=== PATIENT | male | born 1985 | race African-American/Black ===

== ENCOUNTER 2016-09-09 12:45 | Inpatient (IN) | payer OTHER ==
[2016-09-09 17:01] VITALS: BMI 24.4
--- NOTE | 2016-09-09 20:12 | HP ---
CIWA Score - CIWA Score Nausea/Vomitin-Mild Nausea/No Vomiting Muscle Tremors: 4-Moderate,w/Arms Extend Anxiety: 4-Mod. Anxious/Guarded Agitation: 4-Moderately Restless Paroxysmal Sweats: 1-Minimal Palms Moist Orientation: 0-Oriented Tacttile Disturbances: 0-None Auditory Disturbances: 0-None Visual Disturbances: 0-None Headache: 0-None Present CIWA-Ar Total Score: 14 Admission ROS S - HPI Chief Complaint: withdrawal sx Allergies/Adverse Reactions: Allergies Allergy/AdvReac Type Severity Reaction Status Date / Time Fish Containing Products AdvReac Verified 09/09/16 20:16 History of Present Illness: 31 years old male with long history of xanax dependence has asthma and depression is admitted to detox Exam Limitations: No Limitations - Ebola screening Have you traveled outside of the country in the last 21 days: No Have you had contact with anyone from an Ebola affected area: No Have you been sick,other than usual withdrawal symptoms: No Do you have a fever: No - Review of Systems Constitutional: Chills, Changes in sleep, Weight Stable EENT: reports: No Symptoms Reported Respiratory: reports: SOB with Exertion Cardiac: reports: No Symptoms Reported GI: reports: Nausea, Poor Fluid Intake, Abdominal cramping : reports: No Symptoms Reported Musculoskeletal: reports: No Symptoms Reported Integumentary: reports: No Symptoms Reported Neuro: reports: Tremors Endocrine: reports: No Symptoms Reported Hematology: reports: No Symptoms Reported Psychiatric: reports: Judgement Intact, Orientated x3, Depressed Other Systems: Reviewed and Negative Patient History - Patient Medical History Hx Anemia: No Hx Asthma: Yes Hx Chronic Obstructive Pulmonary Disease (COPD): No Hx Cancer: No Hx Cardiac Disorders: No Hx Congestive Heart Failure: No Hx Hypertension: No Hx Hypercholesterolemia: No Hx Pacemaker: No HX Cerebrovascular Accident: No Hx Seizures: No Hx Dementia: No Hx Diabetes: No Hx Gastrointestinal Disorders: No Hx Liver Disease: No Hx Genitourinary Disorders: No Hx Sexually Transmitted Disorders: No Hx Renal Disease (ESRD): No Hx Thyroid Disease: No Hx Human Immunodeficiency Virus (HIV): No Hx Hepatitis C: No Hx Depression: Yes Hx Suicide Attempt: Yes (2016 over dose) Hx Bipolar Disorder: No Hx Schizophrenia: No - Patient Surgical History Past Surgical History: No - PPD History Previous Implant?: Yes Documented Results: Negative w/o proof Implanted On Prior [facility] Admission?: No PPD to be Administered?: Yes - Smoking Cessation Smoking history: Never smoked Have you smoked in the past 12 months: No Hx Chewing Tobacco Use: No Initiated information on smoking cessation: No - Substance & Tx. History Hx Alcohol Use: No Hx Substance Use: Yes Substance Use Type: Tranquilizers Hx Substance Use Treatment: Yes - Substances Abused Alprazolam (Xanax) Route: Oral Frequency: Daily Amount used: 10 mg Age of first use: 30 Date of Last Use: 09/08/16 Family Disease History - Family Disease History Family Disease History: Diabetes: Father, Mother, Heart Disease: Father, Respiratory: Brother Admission Physical Exam [facility] - Vital Signs Vital Signs: Vital Signs - 24 hr 09/09/16 16:57 Temperature 97 F L Pulse Rate 62 Respiratory 20 Rate Blood Pressure 131/68 - Physical General Appearance: Yes: Appropriately Dressed, Mild Distress, Thin, Tremorous, Irritable, Sweating, Anxious HEENTM: Yes: Hearing grossly Normal, Normal ENT Inspection, Normocephalic, Normal Voice Respiratory: Yes: Chest Non-Tender, Lungs Clear, Normal Breath Sounds, No Respiratory Distress, No Accessory Muscle Use Neck: Yes: Supple, Trachea in good position Breast: Yes: Breasts Symetrical Cardiology: Yes: Regular Rhythm, S1, S2, Bradycardia Abdominal: Yes: Non Tender, Soft Genitourinary: Yes: Within Normal Limits Back: Yes: Normal Inspection Musculoskeletal: Yes: full range of Motion, Gait Steady Extremities: Yes: Normal Range of Motion, Non-Tender, Tremors Neurological: Yes: Fully Oriented, Alert, Motor Strength 5/5, Normal Response, Depressed Affect Integumentary: Yes: Warm Lymphatic: Yes: Within Normal Limits - Diagnostic (1) Sedative, hypnotic or anxiolytic dependence with withdrawal, uncomplicated Current Visit: Yes Status: Acute (2) Asthma Current Visit: Yes Status: Chronic Qualifiers: Asthma severity: mild intermittent Asthma complication type: with status asthmaticus Qualified Code(s): J45.22 - Mild intermittent asthma with status asthmaticus (3) Depression (emotion) Current Visit: Yes Status: Suspected Qualifiers: Depression Type: dysthymia Qualified Code(s): F34.1 - Dysthymic disorder Cleared for Admission S - Detox or Rehab [facility] Level of Care: Medically Managed Detox Regimen/Protocol: Valium BHS Breath Alcohol Content Breath Alcohol Content: 0 Urine Drug Screen - Results Drug Screen Negative: No Urine Drug Screen Results: BZO-Benzodiazepines, TCA-Tricyclic Antidepress
[2016-09-09] MEDS ORDERED: MENTHOL/PHENOL 1 EACH UD MM PRN (20:22)
[2016-09-09] MEDS ORDERED: guaiFENesin/D-METHORPHAN HB 10 ML UNIT-DOSE CUPS PO PRN (20:22)
[2016-09-09] MEDS ORDERED: diazePAM 5 MG TABLET PO ONE (20:22)
[2016-09-09] MEDS ORDERED: hydrOXYzine PAMOATE 50 MG CAPSULE (FP) PO PRN (20:22)
[2016-09-09] MEDS ORDERED: MAGNESIUM HYDROX 2400MG/30ML ORAL SUSPENSION 30 ML CUP PO PRN (20:22)
[2016-09-09] MEDS ORDERED: MAG HYDROX/AL HYDROX/SIMETH 30 ML UNIT-DOSE CUP PO PRN (20:22)
[2016-09-09] MEDS ORDERED: LOPERAMIDE HCL 2 MG CAPSULE PO PRN (20:22)
[2016-09-09] MEDS ORDERED: IBUPROFEN 400 MG TABLET (FP) PO PRN (20:22)
[2016-09-09] MEDS ORDERED: MAGNESIUM CITRATE 300 ML BOTTLE PO PRN (20:22)
[2016-09-09] MEDS ORDERED: P-EPHED 60MG/TRIPROLIDI 2.5MG TABLET PO PRN (20:22)
[2016-09-09] MEDS: THIAMINE HCL 100 MG TABLET (FP) PO SCH (23:25)
[2016-09-09] MEDS: diphenhydrAMINE HCL 50 MG CAPSULE PO PRN (23:27)
[2016-09-09] MEDS: diazePAM 5 MG TABLET PO SCH (23:33)
[2016-09-10 00:20] LABS: URINE APPEARANCE CLEAR; URINE BILIRUBIN NEGATIVE (NEGATIVE); URINE BLOOD NEGATIVE (NEGATIVE); URINE COLOR LTYELLOW; URINE GLUCOSE (UA) NEGATIVE (NEGATIVE); URINE KETONE NEGATIVE (NEGATIVE); URINE LEUK ESTERASE NEGATIVE (NEGATIVE); URINE NITRITE NEGATIVE (NEGATIVE); URINE PROTEIN NEGATIVE (NEGATIVE); URINE UROBILINOGEN NEGATIVE E.U./dl (0.2-1.0)
[2016-09-10] MEDS: diazePAM 5 MG TABLET PO SCH ×3 (06:06→22:23)
[2016-09-10] MEDS: ALBUTEROL SO4 6.7 GM HFA INHALER IH PRN (06:07)
[2016-09-10] MEDS: diazePAM 5 MG TABLET PO PRN (09:21)
[2016-09-10 09:52] LABS: MCHC 32.7 g/dl (32.0-35.9); MEAN CELL VOLUME 94.8 fl (80-96); MEAN PLT VOLUME 10.5 fl (7.5-11.1); PLATELET COUNT 258 K/MM3 (134-434); RDW 14.1 % (11.9-15.9); WHITE BLOOD COUNT 5.9 K/mm3 (4.0-10.0)
[2016-09-10] MEDS: PRENATAL VITAMINS W/ FOLIC ACID TABLET (FP) PO SCH (10:27)
[2016-09-10 10:37] LABS: ALK PHOS 52 U/L (45-117); ANION GAP 7 (8-16); BILIRUBIN,TOTAL 0.5 mg/dL (0.2-1.0); CALCIUM 9.7 mg/dL (8.5-10.1); CO2 30 mmol/L (21-32); CREATININE 1.1 mg/dL (0.7-1.3); GLUCOSE,RANDOM 86 mg/dL (74-106); SGOT/AST 16 U/L (15-37); SGPT/ALT 23 U/L (12-78); TOT PROT 7.5 g/dl (6.4-8.2)
--- NOTE | 2016-09-10 11:41 | EKG ---
Test Reason : Blood Pressure : / mmHG Vent. Rate : 058 BPM Atrial Rate : 058 BPM P-R Int : 174 ms QRS Dur : 092 ms QT Int : 396 ms P-R-T Axes : 056 040 048 degrees QTc Int : 388 ms SINUS BRADYCARDIA WITH SINUS ARRHYTHMIA OTHERWISE NORMAL ECG NO PREVIOUS ECGS AVAILABLE Confirmed by MARCIAL ENGLAND, JOANNA ([id number]) on 09/10/2016 11:41:08 AM Referred By: Confirmed By:JOANNA CEJA MD
--- NOTE | 2016-09-10 12:03 | PN ---
S CIWA - CIWA Score Nausea/Vomitin Muscle Tremors: 4-Moderate,w/Arms Extend Anxiety: 3 Agitation: 2 Paroxysmal Sweats: 3 Orientation: 0-Oriented Tacttile Disturbances: 0-None Auditory Disturbances: 2-Mild Harshness/Frighten Visual Disturbances: 2-Mild Sensitivity Headache: 0-None Present CIWA-Ar Total Score: 18 S Progress Note (SOAP) Subjective: Tremors, Body Aches, Sweating. Objective: PT. A & O X 3, OBSERVED AMBULATING ON UNIT. NO ACUTE DISTRESS. PT. DENIES CHEST PAIN. 09/10/16 12:02 Vital Signs Temperature 96.4 F L 09/10/16 10:08 Pulse Rate 70 09/10/16 10:08 Respiratory Rate 18 09/10/16 10:08 Blood Pressure 130/95 09/10/16 10:08 O2 Sat by Pulse Oximetry (%) Laboratory Tests 09/09/16 09/10/16 09/10/16 23:14 06:00 06:00 WBC 5.9 RBC 4.38 Hgb 13.6 Hct 41.5 MCV 94.8 MCHC 32.7 RDW 14.1 Plt Count 258 MPV 10.5 Sodium 142 Potassium 4.5 Chloride 105 Carbon Dioxide 30 Anion Gap 7 L BUN 14 Creatinine 1.1 Creat Clearance w eGFR > 60 Random Glucose 86 Calcium 9.7 Total Bilirubin 0.5 AST 16 ALT 23 Alkaline Phosphatase 52 Total Protein 7.5 Albumin 4.0 Urine Color Ltyellow Urine Appearance Clear Urine pH 7.0 Urine Protein Negative Urine Glucose (UA) Negative Urine Ketones Negative Urine Blood Negative Urine Nitrite Negative Urine Bilirubin Negative Urine Urobilinogen Negative Ur Leukocyte Esterase Negative LABS NOTED. Assessment: 09/10/16 12:03 WITHDRAWAL SYMPTOMS. Plan: CONTINUE DETOX.
--- NOTE | 2016-09-10 16:00 | CONSULT ---
[facility] Psychiatric Consult - Data Date of interview: 09/10/16 Admission source: [facility] Identifying data: First admission to [facility] for this 31 y/o AA male seeking detox treatment for xanax dependence.Patient is single without children, domiciled (lives with his mother),unemployed and supported on Public Assistance. Substance Abuse History: - Smoking Cessation. Smoking history: Never smoked. Have you smoked in the past 12 months: No. Hx Chewing Tobacco Use: No. Initiated information on smoking cessation: No. - Substance & Tx. History. Hx Alcohol Use: No. Hx Substance Use: Yes. Substance Use Type: Tranquilizers. Hx Substance Use Treatment: Yes. - Substances Abused. Alprazolam (Xanax). Route: Oral. Frequency: Daily. Amount used: 10 mg. Age of first use: 30. Date of Last Use: 09/08/16. Confirmed by patient. Medical History: Patient endorses good general health. Psychiatric History: Patient denies history of psychiatric hospitalizations.Brief O[facility] care at [facility] six months ago.Mr Narayanan reports that he is not on prescribed psychotropic medications (buys xanax from street dealers).Denies history of suicide attempts. Physical/Sexual Abuse/Trauma History: Patient denies history of abuse. Additional Comment: Urine Drug Screen Results: BZO-Benzodiazepines, TCA- Tricyclic Antidepressant.Noted. Mental Status Exam - Mental Status Exam Alert and Oriented to: Time, Place, Person Cognitive Function: Good Patient Appearance: Well Groomed Mood: Nervous, Withdrawn Affect: Mood Congruent Patient Behavior: Appropriate, Cooperative Speech Pattern: Clear Voice Loudness: Normal Thought Process: Goal Oriented Thought Disorder: Not Present Hallucinations: Denies Suicidal Ideation: Denies Homicidal Ideation: Denies Insight/Judgement: Poor Sleep: Poorly, Difficulty falling asleep (wants seroquel) Appetite: Good Muscle strength/Tone: Normal Gait/Station: Normal Psychiatric Findings - Problem List ([place] 1, 2,3) (1) Sedative, hypnotic or anxiolytic dependence with withdrawal, uncomplicated Current Visit: Yes Status: Acute (2) Substance induced mood disorder Current Visit: Yes Status: Acute (3) Insomnia Current Visit: Yes Status: Acute - Initial Treatment Plan Initial Treatment Plan: Psychoeducation.Detoxification.Seroquel 100 mg po hs.Side effects/benefits discussed with the patient.Consent (verbal) given.Observation.
[2016-09-10] MEDS: THIAMINE HCL 100 MG TABLET (FP) PO SCH (22:23)
[2016-09-10] MEDS: QUEtiapine FUMARATE 100 MG TABLET (FP) PO SCH (22:23)
[2016-09-11] MEDS: diazePAM 5 MG TABLET PO PRN ×3 (05:47→17:17)
[2016-09-11] MEDS: ACETAMINOPHEN 325 MG TABLET (FP) PO PRN ×2 (05:47→10:21)
[2016-09-11] MEDS: diazePAM 5 MG TABLET PO SCH ×2 (10:20→22:23)
[2016-09-11] MEDS: PRENATAL VITAMINS W/ FOLIC ACID TABLET (FP) PO SCH (10:20)
[2016-09-11] MEDS ORDERED: LIDOCAINE 5% TOPICAL PATCH TP ONE (11:59)
--- NOTE | 2016-09-11 12:02 | PN ---
[facility] CIWA - CIWA Score Nausea/Vomitin-No Nausea/No Vomiting Muscle Tremors: 4-Moderate,w/Arms Extend Anxiety: 3 Agitation: 0-Normal Activity Paroxysmal Sweats: 3 Orientation: 0-Oriented Tacttile Disturbances: 3-Moderate Itch/Numb/Burn Auditory Disturbances: 2-Mild Harshness/Frighten Visual Disturbances: 0-None Headache: 0-None Present CIWA-Ar Total Score: 15 S Progress Note (SOAP) Subjective: Body Aches, Sweating, Tremors, Interrupted Sleep. Objective: PT. A & O X 3. NO ACUTE DISTRESS. 09/11/16 12:01 Vital Signs Temperature 96.2 F L 09/11/16 10:11 Pulse Rate 58 L 09/11/16 10:11 Respiratory Rate 18 09/11/16 10:11 Blood Pressure 133/81 09/11/16 10:11 O2 Sat by Pulse Oximetry (%) Laboratory Tests 09/09/16 09/10/16 09/10/16 23:14 06:00 06:00 WBC 5.9 RBC 4.38 Hgb 13.6 Hct 41.5 MCV 94.8 MCHC 32.7 RDW 14.1 Plt Count 258 MPV 10.5 Sodium 142 Potassium 4.5 Chloride 105 Carbon Dioxide 30 Anion Gap 7 L BUN 14 Creatinine 1.1 Creat Clearance w eGFR > 60 Random Glucose 86 Calcium 9.7 Total Bilirubin 0.5 AST 16 ALT 23 Alkaline Phosphatase 52 Total Protein 7.5 Albumin 4.0 Urine Color Ltyellow Urine Appearance Clear Urine pH 7.0 Ur Specific [place] 1.020 Urine Protein Negative Urine Glucose (UA) Negative Urine Ketones Negative Urine Blood Negative Urine Nitrite Negative Urine Bilirubin Negative Urine Urobilinogen Negative Ur Leukocyte Esterase Negative RPR Titer 09/10/16 06:00 WBC RBC Hgb Hct MCV MCHC RDW Plt Count MPV Sodium Potassium Chloride Carbon Dioxide Anion Gap BUN Creatinine Creat Clearance w eGFR Random Glucose Calcium Total Bilirubin AST ALT Alkaline Phosphatase Total Protein Albumin Urine Color Urine Appearance Urine pH Ur Specific [place] Urine Protein Urine Glucose (UA) Urine Ketones Urine Blood Urine Nitrite Urine Bilirubin Urine Urobilinogen Ur Leukocyte Esterase RPR Titer Nonreactive LABS NOTED. Assessment: 09/11/16 12:01 WITHDRAWAL SYMPTOMS. Plan: CONTINUE DETOX.
[2016-09-11] MEDS ORDERED: LIDOCAINE PATCH REMOVAL MC SCH (22:00)
[2016-09-11] MEDS: ALBUTEROL SO4 6.7 GM HFA INHALER IH PRN (22:23)
[2016-09-11] MEDS: diphenhydrAMINE HCL 50 MG CAPSULE PO PRN (22:23)
[2016-09-11] MEDS: THIAMINE HCL 100 MG TABLET (FP) PO SCH (22:23)
[2016-09-11] MEDS: QUEtiapine FUMARATE 100 MG TABLET (FP) PO SCH (22:23)
[2016-09-12] MEDS: diazePAM 5 MG TABLET PO PRN (05:50)
[2016-09-12 10:04] VITALS: BP 121/82; PULSE 65; TEMP 96.2
[2016-09-12] MEDS: diazePAM 5 MG TABLET PO SCH (10:35)
[2016-09-12] MEDS: PRENATAL VITAMINS W/ FOLIC ACID TABLET (FP) PO SCH (10:35)
--- NOTE | 2016-09-12 11:11 | DS ---
[facility] Detox Discharge Summary Admission Date: 09/09/16 Discharge Date: 09/12/16 - History Present History: Sedative Dependence Additional Comments: ADVISED PATIENT TO FOLLOW-UP WITH [facility] FOR GENERAL MEDICAL ASSESSMENT. Pertinent Past History: Asthma, Depression. - Physical Exam Results Vital Signs: Vital Signs Temperature 96.2 F L 09/12/16 10:02 Pulse Rate 65 09/12/16 10:02 Respiratory Rate 18 09/12/16 10:02 Blood Pressure 121/82 09/12/16 10:02 O2 Sat by Pulse Oximetry (%) Pertinent Admission Physical Exam Findings: WITHDRAWAL SYMPTOMS. Laboratory Tests 09/09/16 09/10/16 09/10/16 23:14 06:00 06:00 WBC 5.9 RBC 4.38 Hgb 13.6 Hct 41.5 MCV 94.8 MCHC 32.7 RDW 14.1 Plt Count 258 MPV 10.5 Sodium 142 Potassium 4.5 Chloride 105 Carbon Dioxide 30 Anion Gap 7 L BUN 14 Creatinine 1.1 Creat Clearance w eGFR > 60 Random Glucose 86 Calcium 9.7 Total Bilirubin 0.5 AST 16 ALT 23 Alkaline Phosphatase 52 Total Protein 7.5 Albumin 4.0 Urine Color Ltyellow Urine Appearance Clear Urine pH 7.0 Ur Specific [place] 1.020 Urine Protein Negative Urine Glucose (UA) Negative Urine Ketones Negative Urine Blood Negative Urine Nitrite Negative Urine Bilirubin Negative Urine Urobilinogen Negative Ur Leukocyte Esterase Negative RPR Titer 09/10/16 06:00 WBC RBC Hgb Hct MCV MCHC RDW Plt Count MPV Sodium Potassium Chloride Carbon Dioxide Anion Gap BUN Creatinine Creat Clearance w eGFR Random Glucose Calcium Total Bilirubin AST ALT Alkaline Phosphatase Total Protein Albumin Urine Color Urine Appearance Urine pH Ur Specific [place] Urine Protein Urine Glucose (UA) Urine Ketones Urine Blood Urine Nitrite Urine Bilirubin Urine Urobilinogen Ur Leukocyte Esterase RPR Titer Nonreactive LABS NOTED. - Treatment Hospital Course: Detoxed Safely - Medication Discharge Medications: Ambulatory Orders Albuterol Sulfate Inhaler - [Ventolin Hfa Inhaler -] 1 - 2 inh PO QID 09/09/16 Loratadine [Claritin -] 10 mg PO DAILY 09/09/16 Montelukast Na [Singulair -] 10 mg PO HS 09/09/16 Quetiapine Fumarate [Seroquel] 100 mg PO HS #30 tablet 09/12/16 - Diagnosis (1) Insomnia Current Visit: Yes Status: Acute (2) Sedative, hypnotic or anxiolytic dependence with withdrawal, uncomplicated Current Visit: Yes Status: Acute (3) Substance induced mood disorder Current Visit: Yes Status: Acute (4) Depression (emotion) Current Visit: Yes Status: Suspected Qualifiers: Depression Type: dysthymia Qualified Code(s): F34.1 - Dysthymic disorder (5) Asthma Current Visit: Yes Status: Chronic Qualifiers: Asthma severity: mild intermittent Asthma complication type: with status asthmaticus Qualified Code(s): J45.22 - Mild intermittent asthma with status asthmaticus - AMA Did Patient Leave Against Medical Advice: Yes (PATIENT HAD PERSONAL AFFAIR TO ATTEND TO AND COULD STAY TO COMPLETE DETOX.)
[2016-09-13] MEDS ORDERED: diazePAM 5 MG TABLET PO SCH (10:00)
== END 2016-09-12 09:40 | disposition left against medical advice (07) | DRG 770 ==
LOC: YASAS 12:45 → Y3N 20:35
PROVIDERS: ADMIT Internal Medicine; ATTEND Internal Medicine
PROC: HZ2ZZZZ Detoxification Services for Substance Abuse Treatment (ICD-10-PCS; principal; 2016-09-09)
DX: F13.230 Sedative, hypnotic or anxiolytic dependence with withdrawal, uncomplicated (principal); F19.24 Other psychoactive substance dependence with psychoactive substance-induced mood disorder; F34.1 Dysthymic disorder; J45.22 Mild intermittent asthma with status asthmaticus; R00.1 Bradycardia, unspecified; G47.00 Insomnia, unspecified; Z91.5 Personal history of self-harm
CPT/HCPCS: 36415; 80053; 81003; 85027; 86593; 93005; 93010

== ENCOUNTER 2017-12-16 08:08 | Inpatient (IN) | payer OTHER ==
[2017-12-16 10:20] VITALS: BMI 25.1
--- NOTE | 2017-12-16 13:08 | HP ---
CIWA Score - CIWA Score Nausea/Vomitin-No Nausea/No Vomiting Muscle Tremors: 4-Moderate,w/Arms Extend Anxiety: 4-Mod. Anxious/Guarded Agitation: 4-Moderately Restless Paroxysmal Sweats: 1-Minimal Palms Moist Orientation: 0-Oriented Tacttile Disturbances: 0-None Auditory Disturbances: 0-None Visual Disturbances: 0-None Headache: 0-None Present CIWA-Ar Total Score: 13 Admission ROS BHS - HPI Chief Complaint: ALCOHOL WITHDRAWAL SX Allergies/Adverse Reactions: Allergies Allergy/AdvReac Type Severity Reaction Status Date / Time Fish Containing Products Allergy Severe Rash Verified 12/16/17 10:37 No Known Drug Allergies Allergy Verified 12/16/17 13:20 NKDA Allergy Uncoded 12/16/17 10:41 History of Present Illness: 32 Y/O AA/MALE WITH A HX OF ALCOHOL AND COCAINE DEPENDENCE SEEKING DETOX TX. PT HAS PREVIOUS TX EPISODES. PT REPORTS CANNOT REMEMBER ANY SOBER PERIODS. PT REPORTS USE OF PERCOCETS FOR RECREATION AND NOT EVERYDAY. Exam Limitations: No Limitations - Ebola screening Have you traveled outside of the country in the last 21 days: No Have you had contact with anyone from an Ebola affected area: No Have you been sick,other than usual withdrawal symptoms: No Do you have a fever: No - Review of Systems Constitutional: Loss of Appetite, Night Sweats, Changes in sleep, Unintentional Wgt. Loss EENT: reports: Tearing, Nose Congestion, Dental Problems (MISSING TEETH) Respiratory: reports: Shortness of Breath (HX ASTHMA), Wheezing Cardiac: reports: Lightheadedness GI: reports: No Symptoms Reported : reports: No Symptoms Reported Musculoskeletal: reports: Muscle Pain Integumentary: reports: Change in Color ([place]), Rash Neuro: reports: Tremors, Dizziness Endocrine: reports: No Symptoms Reported Hematology: reports: No Symptoms Reported Psychiatric: reports: Orientated x3, Anxious, Depressed Other Systems: Reviewed and Negative Patient History - Patient Medical History Hx Anemia: No Hx Asthma: Yes (MDI) Hx Chronic Obstructive Pulmonary Disease (COPD): No Hx Cancer: No Hx Cardiac Disorders: No Hx Congestive Heart Failure: No Hx Hypertension: No Hx Hypercholesterolemia: No Hx Pacemaker: No HX Cerebrovascular Accident: No Hx Seizures: No Hx Dementia: No Hx Diabetes: No Hx Gastrointestinal Disorders: No Hx Liver Disease: No Hx Genitourinary Disorders: No Hx Sexually Transmitted Disorders: No (DENIES) Hx Renal Disease (ESRD): No Hx Thyroid Disease: No Hx Human Immunodeficiency Virus (HIV): No (NEGATIVE HX) Hx Hepatitis C: No (DENIES) Hx Depression: Yes Hx Suicide Attempt: No (DENIES) Hx Bipolar Disorder: No Hx Schizophrenia: No - Patient Surgical History Past Surgical History: No Hx Neurologic Surgery: No Hx Cataract Extraction: No Hx Cardiac Surgery: No Hx Lung Surgery: No Hx Breast Surgery: No Hx Breast Biopsy: No Hx Abdominal Surgery: No Hx Appendectomy: No Hx Cholecystectomy: No Hx Genitourinary Surgery: No Hx Orthopedic Surgery: No Anesthesia Reaction: No - PPD History Previous Implant?: Yes Documented Results: Positive w/proof Implanted On Prior [facility] Admission?: Yes Date: 09/11/16 Results: 0 mm PPD to be Administered?: Yes - Reproductive History Patient is a Female of Child Bearing Age (11 -55 yrs old): No (MALE) - Smoking Cessation Smoking history: Never smoked Have you smoked in the past 12 months: No Hx Chewing Tobacco Use: No Initiated information on smoking cessation: No - Substance & Tx. History Hx Alcohol Use: Yes (COGNAC/BEER) Hx Substance Use: Yes (COCAINE/PERCOCET) Substance Use Type: Alcohol, Cocaine Hx Substance Use Treatment: Yes (LAST TX AT [facility]) - Substances Abused Cocaine Route: Inhalation Frequency: Daily Amount used: 1 gm. Age of first use: 23 Date of Last Use: 12/15/17 Alcohol-cognac/beer Route: Oral Frequency: Daily Amount used: 1 pt./3 (16 oz.) Age of first use: 15 Date of Last Use: 12/15/17 Percocet Route: Oral Frequency: 1-3 times last 30 days Amount used: 20 mg. Age of first use: 23 Date of Last Use: 12/14/17 Family Disease History - Family Disease History Family Disease History: Diabetes: Father, Mother, Heart Disease: Father, Respiratory: Brother Admission Physical Exam BHS - Vital Signs Vital Signs: Vital Signs - 24 hr 12/16/17 10:16 Temperature 97.7 F Pulse Rate 96 H Respiratory 18 Rate Blood Pressure 117/82 - Physical General Appearance: Yes: Mild Distress, Irritable, Anxious HEENTM: Yes: EOMI, Normocephalic, RAJESH, Pharynx Normal Respiratory: Yes: Chest Non-Tender, Lungs Clear, Normal Breath Sounds, No Respiratory Distress Neck: Yes: No masses,lesions,Nodules, Supple, Trachea in good position Breast: Yes: Breast Exam Deferred Cardiology: Yes: Regular Rhythm, Regular Rate, S1, S2 Abdominal: Yes: Normal Bowel Sounds, Non Tender, Flat Genitourinary: Yes: Other (N/C) Back: Yes: Within Normal Limits Musculoskeletal: Yes: full range of Motion, Gait Steady Extremities: Yes: Normal Range of Motion, Non-Tender 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, Fully Oriented, Alert, Motor Strength 5/5 Integumentary: Yes: Dry, Warm Lymphatic: Yes: Within Normal Limits - Diagnostic (1) Alcohol dependence with uncomplicated withdrawal Current Visit: Yes Status: Acute (2) Cocaine dependence, uncomplicated Current Visit: Yes Status: Acute (3) Asthma Current Visit: Yes Status: Chronic Qualifiers: Asthma severity: unspecified severity Asthma persistence: unspecified Asthma complication type: unspecified Qualified Code(s): J45.909 - Unspecified asthma, uncomplicated (4) Depression (emotion) Current Visit: Yes Status: Chronic Qualifiers: Depression Type: dysthymia Qualified Code(s): F34.1 - Dysthymic disorder Cleared for Admission [facility] - Detox or Rehab [facility] Level of Care: Medically Managed Detox Regimen/Protocol: Valium [facility] Breath Alcohol Content Breath Alcohol Content: 0 Urine Drug Screen - Results Drug Screen Negative: No Urine Drug Screen Results: THC-Marijuana, HANY-Cocaine, OXY-Oxycodone
[2017-12-16] MEDS ORDERED: MAGNESIUM CITRATE 300 ML BOTTLE PO PRN (13:11)
[2017-12-16] MEDS ORDERED: MAG HYDROX/AL HYDROX/SIMETH 30 ML UNIT-DOSE CUP PO PRN (13:11)
[2017-12-16] MEDS ORDERED: ACETAMINOPHEN 325 MG TABLET (FP) PO PRN (13:11)
[2017-12-16] MEDS ORDERED: MENTHOL/PHENOL 1 EACH UD MM PRN (13:11)
[2017-12-16] MEDS ORDERED: LOPERAMIDE HCL 2 MG CAPSULE PO PRN (13:11)
[2017-12-16] MEDS ORDERED: IBUPROFEN 400 MG TABLET (FP) PO PRN (13:11)
[2017-12-16] MEDS ORDERED: MAGNESIUM HYDROX 2400MG/30ML ORAL SUSPENSION 30 ML CUP PO PRN (13:11)
[2017-12-16] MEDS ORDERED: P-EPHED 60MG/TRIPROLIDI 2.5MG TABLET PO PRN (13:11)
[2017-12-16] MEDS ORDERED: guaiFENesin/D-METHORPHAN HB 10 ML UNIT-DOSE CUPS PO PRN (13:11)
[2017-12-16] MEDS ORDERED: diazePAM 5 MG TABLET PO ONE (14:05)
--- NOTE | 2017-12-16 15:59 | EKG ---
Test Reason : Blood Pressure : / mmHG Vent. Rate : 069 BPM Atrial Rate : 069 BPM P-R Int : 126 ms QRS Dur : 090 ms QT Int : 396 ms P-R-T Axes : -07 053 032 degrees QTc Int : 424 ms NORMAL SINUS RHYTHM WITH SINUS ARRHYTHMIA NORMAL ECG WHEN COMPARED WITH ECG OF 09-SEP-2016 22:16, NONSPECIFIC T WAVE ABNORMALITY NOW EVIDENT IN INFERIOR LEADS Confirmed by MARCIAL ENGLAND, JOANNA ([id number]) on 12/16/2017 3:58:38 PM Referred By: Confirmed By:JOANNA CEJA MD
--- NOTE | 2017-12-16 16:54 | CONSULT ---
[facility] Psychiatric Consult - Data Date of interview: 12/16/17 Admission source: [facility] Identifying data: Readmission to [facility] for this 32 y/o AA male self- referred for detoxification treatment (alcohol,opiate,xanax,cocaine dependence) .Admitted to [address] [place] [address].Patient introduces self as without children, domiciled,unemployed at this time but supported on Public Assistance. Substance Abuse History: Confirmed by the atient in this interview.Details in current [facility] report as follows : Smoking history: Never smoked. Have you smoked in the past 12 months: No. Hx Chewing Tobacco Use: No. Initiated information on smoking cessation: No. - Substance & Tx. History. Hx Alcohol Use: Yes ( COGNAC/BEER). Hx Substance Use: Yes (COCAINE/PERCOCET). Substance Use Type: Alcohol, Cocaine. Hx Substance Use Treatment: Yes (LAST TX AT [facility]). - Substances Abused. Cocaine. Route: Inhalation. Frequency: Daily. Amount used: 1 gm. Age of first use: 23. Date of Last Use: 12/15/17. Alcohol- cognac/beer. Route: Oral. Frequency: Daily. Amount used: 1 pt./3 (16 oz.). Age of first use: 15. Date of Last Use: 12/15/17. Percocet. Route: Oral. Frequency: 1-3 times last 30 days. Amount used: 20 mg. Age of first use: 23. Date of Last Use: 12/14/17 Medical History: Bronchial asthma. Psychiatric History: Patient admits to a history of one psychiatric hospitalization at a facility in [facility].Retained for seven days.Mr Narayanan reports that he got " wired up after taking some bad dope " and he " ended up in the psychiatric [facility] ". Diagnosed with MDD and Anxiety Disorder.Patient expresses his disagreement with the diagnosis of major depression but feels that the diagnosis of anxiety is " closer to the truth ".Currently sees a psychiatrist at the [facility].Prescribed xanax and seroquel as per self-report.Denies history of suicide attempts. Physical/Sexual Abuse/Trauma History: Patient denies history of abuse. Additional Comment: Urine Drug Screen Results: THC-Marijuana, HANY-Cocaine, OXY- Oxycodone.Noted. Mental Status Exam - Mental Status Exam Alert and Oriented to: Time, Place, Person Cognitive Function: Good Patient Appearance: Well Groomed Mood: Nervous, Withdrawn Affect: Mood Congruent Patient Behavior: Fatigued, Appropriate, Cooperative Speech Pattern: Clear, Appropriate Voice Loudness: Normal Thought Process: Intact, Goal Oriented Thought Disorder: Not Present Hallucinations: Denies Suicidal Ideation: Denies Homicidal Ideation: Denies Insight/Judgement: Poor Sleep: Poorly, Difficulty falling asleep Appetite: Good Muscle strength/Tone: Normal Gait/Station: Normal Psychiatric Findings - Problem List ([place] 1, 2,3) (1) Alcohol dependence with uncomplicated withdrawal Current Visit: Yes Status: Acute (2) Opiate dependence Current Visit: Yes Status: Acute (3) Cocaine dependence, uncomplicated Current Visit: Yes Status: Acute (4) Sedative, hypnotic or anxiolytic dependence with withdrawal, uncomplicated Current Visit: Yes Status: Acute (5) Cannabis abuse Current Visit: Yes Status: Acute (6) Substance induced mood disorder Current Visit: Yes Status: Acute (7) Insomnia Current Visit: Yes Status: Acute Qualifiers: Insomnia type: unspecified Qualified Code(s): G47.00 - Insomnia, unspecified - Initial Treatment Plan Initial Treatment Plan: Psychoeducation.Sleep hygiene.Detoxification in progress.Seroquel 100 mg po hs.Ordered at the patient's request.Side effects/ benefits discussed with patient.Consented to careplan (verbally).Observation.
[2017-12-16] MEDS: ALBUTEROL SO4 8 GM HFA INHALER IH PRN (21:55)
[2017-12-16] MEDS ORDERED: QUEtiapine FUMARATE 100 MG TABLET (FP) PO SCH (22:00)
[2017-12-16] MEDS ORDERED: MELATONIN 5 MG TABLETS PO PRN (22:00)
[2017-12-16] MEDS: THIAMINE HCL 100 MG TABLET (FP) PO SCH (22:36)
[2017-12-16] MEDS: diazePAM 5 MG TABLET PO SCH (22:36)
[2017-12-16] MEDS: hydrOXYzine PAMOATE 50 MG CAPSULE (FP) PO PRN (22:36)
[2017-12-16] MEDS: MONTELUKAST NA 10 MG TABLET PO SCH (22:37)
[2017-12-16] MEDS: FLUTICASONE PROP 0.05% 16 GM NASAL SPRAY NS SCH (22:38)
[2017-12-17 00:03] LABS: URINE APPEARANCE SLCLOUDY; URINE BILIRUBIN NEGATIVE (<2.0 mg/dL); URINE COLOR AMBER; URINE GLUCOSE (UA) NEGATIVE (NEGATIVE); URINE KETONE NEGATIVE (NEGATIVE); URINE LEUK ESTERASE NEGATIVE (NEGATIVE); URINE NITRITE NEGATIVE (NEGATIVE); URINE UROBILINOGEN NEGATIVE mg/dL (0.2-1.0)
[2017-12-17 00:28] LABS: URINE PROTEIN 2+ (NEGATIVE)
[2017-12-17 00:54] LABS: EPI CELLS RARE /HPF (FEW); URINE BACTERIA FEW /hpf (NONE SEEN); URINE HYALINE CAST 30 /lpf; URINE MUCUS RARE
[2017-12-17] MEDS: diazePAM 5 MG TABLET PO SCH ×3 (05:18→22:27)
[2017-12-17] MEDS: PRENATAL VITAMINS W/ FOLIC ACID TABLET (FP) PO SCH (10:30)
[2017-12-17] MEDS: FLUTICASONE PROP 0.05% 16 GM NASAL SPRAY NS SCH ×2 (10:30→22:27)
[2017-12-17] MEDS: diazePAM 5 MG TABLET PO PRN (10:30)
[2017-12-17 10:45] LABS: HEMATOCRIT 46.8 % (35.4-49); HEMOGLOBIN 15.3 GM/dL (11.7-16.9); MCHC 32.7 g/dl (32.0-35.9); MEAN CELL VOLUME 94.7 fl (80-96); MEAN PLT VOLUME 9.9 fl (7.5-11.1); PLATELET COUNT 354 K/MM3 (134-434); RBC 4.94 M/mm3 (4.00-5.60); RDW 13.2 % (11.9-15.9); WHITE BLOOD COUNT 10.3 K/mm3 (4.0-10.0)
[2017-12-17 10:52] LABS: CHLORIDE 101 mmol/L (98-107); POTASSIUM 4.3 mmol/L (3.5-5.1); SODIUM 140 mmol/L (136-145)
[2017-12-17 11:01] LABS: ALBUMIN 4.9 g/dl (3.4-5.0); ALK PHOS 62 U/L (45-117); ANION GAP 14 MMOL/L (8-16); BILIRUBIN,TOTAL 0.6 mg/dL (0.2-1.0); BLOOD UREA NITROGEN 16 mg/dL (7-18); CALCIUM 10.4 mg/dL (8.5-10.1); CO2 25 mmol/L (21-32); CREATININE 1.5 mg/dL (0.7-1.3); GLUCOSE,RANDOM 85 mg/dL (74-106); SGOT/AST 12 U/L (15-37); SGPT/ALT 15 U/L (13-61)
--- NOTE | 2017-12-17 13:00 | PN ---
[facility] CIWA - CIWA Score Nausea/Vomitin-Mild Nausea/No Vomiting Muscle Tremors: 1-None Visible, but [place] Anxiety: 1-Mildly Anxious Agitation: 0-Normal Activity Paroxysmal Sweats: 1-Minimal Palms Moist Orientation: 0-Oriented Tacttile Disturbances: 0-None Auditory Disturbances: 0-None Visual Disturbances: 0-None Headache: 0-None Present CIWA-Ar Total Score: 4 BHS Progress Note (SOAP) Subjective: Vital Signs Temperature 96.4 F L 12/17/17 09:52 Pulse Rate 87 12/17/17 09:52 Respiratory Rate 18 12/17/17 09:52 Blood Pressure 99/58 12/17/17 09:52 O2 Sat by Pulse Oximetry (%) Laboratory Tests 12/16/17 12/16/17 12/17/17 06:00 Unknown 05:50 WBC 10.3 H RBC 4.94 Hgb 15.3 Hct 46.8 MCV 94.7 MCH 31.0 MCHC 32.7 RDW 13.2 Plt Count 354 D MPV 9.9 Sodium Potassium Chloride Carbon Dioxide Anion Gap BUN Creatinine Creat Clearance w eGFR Random Glucose Calcium Total Bilirubin AST ALT Alkaline Phosphatase Total Protein Albumin Urine Color Tania Urine Appearance Slcloudy Urine pH 5.0 D Ur Specific [place] 1.018 Urine Protein 2+ H Urine Glucose (UA) Negative Urine Ketones Negative Urine Blood Negative Urine Nitrite Negative Urine Bilirubin Negative Urine Urobilinogen Negative Ur Leukocyte Esterase Negative Urine WBC (Auto) 10 Urine RBC (Auto) 1 Ur Epithelial Cells Rare Urine Bacteria Few Hyaline Casts 30 Urine Mucus Rare RPR Titer HIV 1&2 Antibody Screen Negative HIV P24 Antigen Negative 12/17/17 12/17/17 05:50 05:50 WBC RBC Hgb Hct MCV MCH MCHC RDW Plt Count MPV Sodium 140 Potassium 4.3 Chloride 101 Carbon Dioxide 25 Anion Gap 14 BUN 16 Creatinine 1.5 H Creat Clearance w eGFR 53.57 Random Glucose 85 Calcium 10.4 H Total Bilirubin 0.6 AST 12 L ALT 15 Alkaline Phosphatase 62 Total Protein 9.0 H Albumin 4.9 Urine Color Urine Appearance Urine pH Ur Specific [place] Urine Protein Urine Glucose (UA) Urine Ketones Urine Blood Urine Nitrite Urine Bilirubin Urine Urobilinogen Ur Leukocyte Esterase Urine WBC (Auto) Urine RBC (Auto) Ur Epithelial Cells Urine Bacteria Hyaline Casts Urine Mucus RPR Titer Nonreactive HIV 1&2 Antibody Screen HIV P24 Antigen Patient c/o mild anxiety, stomach cramps and chills. Objective: 12/17/17 12:58 Vital Signs Temperature 96.4 F L 12/17/17 09:52 Pulse Rate 87 12/17/17 09:52 Respiratory Rate 18 12/17/17 09:52 Blood Pressure 99/58 12/17/17 09:52 O2 Sat by Pulse Oximetry (%) Laboratory Tests 12/16/17 12/16/17 12/17/17 06:00 Unknown 05:50 WBC 10.3 H RBC 4.94 Hgb 15.3 Hct 46.8 MCV 94.7 MCH 31.0 MCHC 32.7 RDW 13.2 Plt Count 354 D MPV 9.9 Sodium Potassium Chloride Carbon Dioxide Anion Gap BUN Creatinine Creat Clearance w eGFR Random Glucose Calcium Total Bilirubin AST ALT Alkaline Phosphatase Total Protein Albumin Urine Color Tania Urine Appearance Slcloudy Urine pH 5.0 D Ur Specific [place] 1.018 Urine Protein 2+ H Urine Glucose (UA) Negative Urine Ketones Negative Urine Blood Negative Urine Nitrite Negative Urine Bilirubin Negative Urine Urobilinogen Negative Ur Leukocyte Esterase Negative Urine WBC (Auto) 10 Urine RBC (Auto) 1 Ur Epithelial Cells Rare Urine Bacteria Few Hyaline Casts 30 Urine Mucus Rare RPR Titer HIV 1&2 Antibody Screen Negative HIV P24 Antigen Negative 12/17/17 12/17/17 05:50 05:50 WBC RBC Hgb Hct MCV MCH MCHC RDW Plt Count MPV Sodium 140 Potassium 4.3 Chloride 101 Carbon Dioxide 25 Anion Gap 14 BUN 16 Creatinine 1.5 H Creat Clearance w eGFR 53.57 Random Glucose 85 Calcium 10.4 H Total Bilirubin 0.6 AST 12 L ALT 15 Alkaline Phosphatase 62 Total Protein 9.0 H Albumin 4.9 Urine Color Urine Appearance Urine pH Ur Specific [place] Urine Protein Urine Glucose (UA) Urine Ketones Urine Blood Urine Nitrite Urine Bilirubin Urine Urobilinogen Ur Leukocyte Esterase Urine WBC (Auto) Urine RBC (Auto) Ur Epithelial Cells Urine Bacteria Hyaline Casts Urine Mucus RPR Titer Nonreactive HIV 1&2 Antibody Screen HIV P24 Antigen Assessment: 12/17/17 12:59 Withdrawal syndrome Plan: continue detox as per protocol
--- NOTE | 2017-12-17 13:46 | PN ---
Psychiatric Progress Note Vital Signs: Vital Signs Period Temp Pulse Resp BP Sys/Nolan Pulse Ox Last 24 Hr 96.4 F-98.4 F 70-101 -18 99-126/58-88 Date of Session: 12/17/17 Chief Complaint:: "I take seroquel 200mg qhs" HPI: Patient admitted to for alcohol, opiate, xanax, and cocaine dependence. ROS: Bronchial asthma. Current Medications: Active Medications Generic Name Dose Route Start Last Admin Trade Name Freq PRN Reason Stop Dose Admin Acetaminophen 650 mg 12/16/17 13:11 Tylenol - PO Q4H PRN FEVER Al Hydroxide/Mg Hydroxide 30 ml 12/16/17 13:11 Mylanta Oral Suspension - PO Q6H PRN DYSPEPSIA Albuterol Sulfate 2 puff 12/16/17 13:18 12/16/17 21:55 Ventolin Hfa Inhaler - IH 2 puff Q4H PRN Administration ASTHMA Diazepam 10 mg 12/16/17 13:11 12/17/17 10:30 Valium - PO 12/19/17 13:10 10 mg Q4H PRN Administration WITHDRAWAL(CONT SUBST) Diazepam 5 mg 12/16/17 22:00 12/17/17 13:15 Valium - PO 12/17/17 22:01 5 mg TID SRIRAM Administration Diazepam 5 mg 12/18/17 10:00 Valium - PO 12/19/17 22:01 BID SRIRAM Diazepam 5 mg 12/20/17 10:00 Valium - PO 12/20/17 10:01 DAILY SRIRAM Eucalyptus/Menthol/Phenol/Sorbitol 1 each 12/16/17 13:11 Cepastat Lozenge - MM Q4H PRN SORE THROAT Fluticasone Propionate 1 spray 12/16/17 22:00 12/17/17 10:30 Flonase - NS 1 spray BID SRIRAM Administration Guaifenesin 10 ml 12/16/17 13:11 Robitussin Dm - PO Q6H PRN COUGH Hydroxyzine Pamoate 50 mg 12/16/17 21:23 12/16/17 22:36 Vistaril - PO 50 mg Q4H PRN Administration ANXIETY Ibuprofen 400 mg 12/16/17 13:11 Motrin - PO Q6H PRN PAIN LEVEL 4-6 Loperamide HCl 4 mg 12/16/17 13:11 Imodium - PO Q6H PRN DIARRHEA Magnesium Citrate 300 ml 12/16/17 13:11 Citroma - PO Q48H PRN CONSTIPATION Magnesium Hydroxide 30 ml 12/16/17 13:11 Milk Of Magnesia - PO DAILY PRN CONSTIPATION Melatonin 5 mg 12/16/17 22:00 Melatonin PO HS PRN INSOMNIA Montelukast Sodium 10 mg 12/16/17 22:00 12/16/17 22:37 Singulair - PO 10 mg HS SRIRAM Administration Multivit/Folic Acid/Iron 1 tab 12/17/17 10:00 12/17/17 10:30 Vitamins (Sjr) - PO 1 tab DAILY SRIRAM Administration Pseudoephedrine/Triprolidine 1 combo 12/16/17 13:11 Actifed - PO TID PRN NASAL CONGESTION Quetiapine Fumarate 150 mg 12/17/17 22:00 Seroquel - PO HS SRIRAM Thiamine HCl 100 mg 12/16/17 22:00 12/16/17 22:36 Vitamin B1 - PO 100 mg HS SRIRAM Administration Medication(s) Change(s): Will increase seroquel 100mg to 150mg qhs. Current Side Effect: No Lab tests ordered: No Lab tests reviewed: Yes Provider note:: Pt. requesting an increase in Seroquel. States he receives outpatient psychiatric care from [facility] and is prescribed seroquel 200mg for depression and anxiety. Pt. able to tolerate current dose of seroquel 100mg. Reports sleeping well. Denies feeling tired, dizzy, or oversedated this morning. Pt. reports an increase in anxiety and is requesing an increase in seroquel dose. Seroquel 100mg to be increased to 150mg qhs. Pt. encouraged to utilize his coping skills when his anxiety worsens during certain parts of the day and to utilize the PRN vistaril. Benefits and side effects discussed. Verbal consent given. Total face to face time:: 25 Mental Status Exam - Mental Status Exam Alert and Oriented to: Time, Place, Person Cognitive Function: Good Patient Appearance: Well Groomed Mood: Hopeful, Euthymic Affect: Appropriate, Mood Congruent Patient Behavior: Appropriate, Cooperative Speech Pattern: Clear, Appropriate Voice Loudness: Normal Thought Process: Intact, Goal Oriented Thought Disorder: Not Present Hallucinations: Denies Suicidal Ideation: Denies Homicidal Ideation: Denies Insight/Judgement: Poor Sleep: Fair Appetite: Fair Muscle strength/Tone: Normal Gait/Station: Normal Psychiatric Treatment Plan - Problem List (1) Alcohol dependence with uncomplicated withdrawal Current Visit: Yes (2) Cocaine dependence, uncomplicated Current Visit: Yes (3) Insomnia Current Visit: Yes Qualifiers: Insomnia type: unspecified Qualified Code(s): G47.00 - Insomnia, unspecified (4) Opiate dependence Current Visit: Yes (5) Sedative, hypnotic or anxiolytic dependence with withdrawal, uncomplicated Current Visit: Yes (6) Substance induced mood disorder Current Visit: Yes (7) Cannabis abuse Current Visit: Yes (8) Anxiety Current Visit: Yes
[2017-12-17] MEDS: THIAMINE HCL 100 MG TABLET (FP) PO SCH (22:27)
[2017-12-17] MEDS: MONTELUKAST NA 10 MG TABLET PO SCH (22:27)
[2017-12-17] MEDS: QUEtiapine FUMARATE 50 MG TABLET PO SCH (22:27)
[2017-12-17] MEDS: hydrOXYzine PAMOATE 50 MG CAPSULE (FP) PO PRN (22:28)
[2017-12-17] MEDS: ALBUTEROL SO4 8 GM HFA INHALER IH PRN (22:31)
--- NOTE | 2017-12-18 10:15 | PN ---
[facility] CIWA - CIWA Score Nausea/Vomitin-No Nausea/No Vomiting Muscle Tremors: None Anxiety: 2 Agitation: 0-Normal Activity Paroxysmal Sweats: No Perspiration Orientation: 0-Oriented Tacttile Disturbances: 0-None Auditory Disturbances: 0-None Visual Disturbances: 0-None Headache: 0-None Present CIWA-Ar Total Score: 2 BHS Progress Note (SOAP) Subjective: PATIENT PRESENTS WITH ANXIETY, UNCOOPERATIVE WITH PHYSICAL EXAM Objective: 12/18/17 10:11 Laboratory Tests 12/16/17 12/16/17 12/17/17 06:00 Unknown 05:50 WBC 10.3 H RBC 4.94 Hgb 15.3 Hct 46.8 MCV 94.7 MCH 31.0 MCHC 32.7 RDW 13.2 Plt Count 354 D MPV 9.9 Sodium Potassium Chloride Carbon Dioxide Anion Gap BUN Creatinine Creat Clearance w eGFR Random Glucose Calcium Total Bilirubin AST ALT Alkaline Phosphatase Total Protein Albumin Urine Color Tania Urine Appearance Slcloudy Urine pH 5.0 D Ur Specific [place] 1.018 Urine Protein 2+ H Urine Glucose (UA) Negative Urine Ketones Negative Urine Blood Negative Urine Nitrite Negative Urine Bilirubin Negative Urine Urobilinogen Negative Ur Leukocyte Esterase Negative Urine WBC (Auto) 10 Urine RBC (Auto) 1 Ur Epithelial Cells Rare Urine Bacteria Few Hyaline Casts 30 Urine Mucus Rare RPR Titer HIV 1&2 Antibody Screen Negative HIV P24 Antigen Negative 12/17/17 12/17/17 05:50 05:50 WBC RBC Hgb Hct MCV MCH MCHC RDW Plt Count MPV Sodium 140 Potassium 4.3 Chloride 101 Carbon Dioxide 25 Anion Gap 14 BUN 16 Creatinine 1.5 H Creat Clearance w eGFR 53.57 Random Glucose 85 Calcium 10.4 H Total Bilirubin 0.6 AST 12 L ALT 15 Alkaline Phosphatase 62 Total Protein 9.0 H Albumin 4.9 Urine Color Urine Appearance Urine pH Ur Specific [place] Urine Protein Urine Glucose (UA) Urine Ketones Urine Blood Urine Nitrite Urine Bilirubin Urine Urobilinogen Ur Leukocyte Esterase Urine WBC (Auto) Urine RBC (Auto) Ur Epithelial Cells Urine Bacteria Hyaline Casts Urine Mucus RPR Titer Nonreactive HIV 1&2 Antibody Screen HIV P24 Antigen Vital Signs Temperature 96.3 F L 12/18/17 09:55 Pulse Rate 69 12/18/17 09:55 Respiratory Rate 18 12/18/17 09:55 Blood Pressure 101/62 12/18/17 09:55 O2 Sat by Pulse Oximetry (%) PE: ALERT AND ORIENTED SKIN WARM AND DRY CAR S1S2 RESP CTA BL Assessment: 12/18/17 10:13 WITHDRAWAL SYNDROME Plan: CONTINUE DETOX PER PROTOCOL ENCOURAGE ORAL FLUIDS CONTINUE TO MONITOR PER PROTOCOL
[2017-12-18] MEDS: PRENATAL VITAMINS W/ FOLIC ACID TABLET (FP) PO SCH (10:31)
[2017-12-18] MEDS: diazePAM 5 MG TABLET PO SCH ×2 (10:31→22:34)
[2017-12-18] MEDS: FLUTICASONE PROP 0.05% 16 GM NASAL SPRAY NS SCH ×2 (10:32→22:37)
[2017-12-18] MEDS: ALBUTEROL SO4 8 GM HFA INHALER IH PRN (20:27)
[2017-12-18] MEDS: MONTELUKAST NA 10 MG TABLET PO SCH (22:34)
[2017-12-18] MEDS: THIAMINE HCL 100 MG TABLET (FP) PO SCH (22:34)
[2017-12-18] MEDS: QUEtiapine FUMARATE 50 MG TABLET PO SCH (22:34)
[2017-12-18] MEDS: hydrOXYzine PAMOATE 50 MG CAPSULE (FP) PO PRN (22:37)
[2017-12-19] MEDS: PRENATAL VITAMINS W/ FOLIC ACID TABLET (FP) PO SCH (11:03)
[2017-12-19] MEDS: diazePAM 5 MG TABLET PO SCH ×2 (11:03→22:34)
[2017-12-19] MEDS: FLUTICASONE PROP 0.05% 16 GM NASAL SPRAY NS SCH ×2 (11:03→22:33)
[2017-12-19] MEDS: diazePAM 5 MG TABLET PO PRN (13:09)
[2017-12-19] MEDS: ALBUTEROL SO4 8 GM HFA INHALER IH PRN (13:10)
[2017-12-19] MEDS: hydrOXYzine PAMOATE 50 MG CAPSULE (FP) PO PRN ×2 (15:32→22:35)
[2017-12-19] MEDS: THIAMINE HCL 100 MG TABLET (FP) PO SCH (22:34)
[2017-12-19] MEDS: QUEtiapine FUMARATE 50 MG TABLET PO SCH (22:34)
[2017-12-19] MEDS: MONTELUKAST NA 10 MG TABLET PO SCH (22:34)
[2017-12-20 06:34] VITALS: BP 95/56; PULSE 81; TEMP 97
[2017-12-20] MEDS ORDERED: diazePAM 5 MG TABLET PO SCH (10:00)
--- NOTE | 2017-12-20 12:07 | DS ---
[facility] Detox Discharge Summary Admission Date: 12/16/17 Discharge Date: 12/20/17 - History Present History: Alcohol Dependence, Cannabis Dependence, Cocaine Dependence, Opioid Dependence, Sedative Dependence Pertinent Past History: Denies - Physical Exam Results Vital Signs: Vital Signs Temperature 97 F L 12/20/17 06:34 Pulse Rate 81 12/20/17 06:34 Respiratory Rate 18 12/20/17 06:34 Blood Pressure 95/56 12/20/17 06:34 O2 Sat by Pulse Oximetry (%) Pertinent Admission Physical Exam Findings: Withdrawal symptoms Laboratory Tests 12/16/17 12/16/17 12/17/17 06:00 Unknown 05:50 WBC 10.3 H RBC 4.94 Hgb 15.3 Hct 46.8 MCV 94.7 MCH 31.0 MCHC 32.7 RDW 13.2 Plt Count 354 D MPV 9.9 Sodium Potassium Chloride Carbon Dioxide Anion Gap BUN Creatinine Creat Clearance w eGFR Random Glucose Calcium Total Bilirubin AST ALT Alkaline Phosphatase Total Protein Albumin Urine Color Tania Urine Appearance Slcloudy Urine pH 5.0 D Ur Specific [place] 1.018 Urine Protein 2+ H Urine Glucose (UA) Negative Urine Ketones Negative Urine Blood Negative Urine Nitrite Negative Urine Bilirubin Negative Urine Urobilinogen Negative Ur Leukocyte Esterase Negative Urine WBC (Auto) 10 Urine RBC (Auto) 1 Ur Epithelial Cells Rare Urine Bacteria Few Hyaline Casts 30 Urine Mucus Rare RPR Titer HIV 1&2 Antibody Screen Negative HIV P24 Antigen Negative 12/17/17 12/17/17 05:50 05:50 WBC RBC Hgb Hct MCV MCH MCHC RDW Plt Count MPV Sodium 140 Potassium 4.3 Chloride 101 Carbon Dioxide 25 Anion Gap 14 BUN 16 Creatinine 1.5 H Creat Clearance w eGFR 53.57 Random Glucose 85 Calcium 10.4 H Total Bilirubin 0.6 AST 12 L ALT 15 Alkaline Phosphatase 62 Total Protein 9.0 H Albumin 4.9 Urine Color Urine Appearance Urine pH Ur Specific [place] Urine Protein Urine Glucose (UA) Urine Ketones Urine Blood Urine Nitrite Urine Bilirubin Urine Urobilinogen Ur Leukocyte Esterase Urine WBC (Auto) Urine RBC (Auto) Ur Epithelial Cells Urine Bacteria Hyaline Casts Urine Mucus RPR Titer Nonreactive HIV 1&2 Antibody Screen HIV P24 Antigen Labs reviewed: serum creatinine 1.5; UA shows 2+ protein (machine sign writer went over lab results with patient and instructed him to drink plenty of water and follow up with PCP within 1 week and to bring lab result to his PCP for repeated blood and urine test) - Treatment Hospital Course: Detox Protocol Followed, Detoxed Safely, Responded well, Discharged Condition Good - Medication Discharge Medications: Ambulatory Orders Albuterol Sulfate Inhaler - [Ventolin Hfa Inhaler -] 2 puff IH Q4H PRN 09/09/16 Montelukast Na [Singulair -] 10 mg PO HS 09/09/16 Quetiapine Fumarate [Seroquel] 100 mg PO HS #30 tablet 09/12/16 - Diagnosis (1) Alcohol dependence with uncomplicated withdrawal Status: Acute (2) Anxiety Status: Acute (3) Cannabis abuse Status: Chronic (4) Cocaine dependence, uncomplicated Status: Chronic (5) Insomnia Status: Acute Qualifiers: Insomnia type: unspecified Qualified Code(s): G47.00 - Insomnia, unspecified (6) Opiate dependence Status: Acute (7) Sedative, hypnotic or anxiolytic dependence with withdrawal, uncomplicated Status: Acute (8) Substance induced mood disorder Status: Acute - AMA Did Patient Leave Against Medical Advice: No (follow up with PCP within 1 week)
== END 2017-12-20 10:02 | disposition home or self-care (01) | DRG 773 ==
LOC: YASAS 08:08 → Y3N 13:54
PROC: HZ2ZZZZ Detoxification Services for Substance Abuse Treatment (ICD-10-PCS; principal; 2017-12-16)
DX: F10.230 Alcohol dependence with withdrawal, uncomplicated (principal); F11.20 Opioid dependence, uncomplicated; F13.230 Sedative, hypnotic or anxiolytic dependence with withdrawal, uncomplicated; F14.20 Cocaine dependence, uncomplicated; F12.10 Cannabis abuse, uncomplicated; F19.24 Other psychoactive substance dependence with psychoactive substance-induced mood disorder; F34.1 Dysthymic disorder; F41.9 Anxiety disorder, unspecified; G47.00 Insomnia, unspecified; J45.909 Unspecified asthma, uncomplicated
CPT/HCPCS: 36415; 80053; 81003; 81015; 85027; 86593; 87389; 93005; 93010

== ENCOUNTER 2018-07-30 08:58 | Inpatient (IN) | payer OTHER ==
[2018-07-30 09:31] VITALS: BMI 28.8
--- NOTE | 2018-07-30 10:22 | HP ---
COWS - Scale Resting Pulse: 0= [place] 80 or Below Sweatin= Chills/Flushing Restless Observation: 1= Difficult to Sit Still Pupil Size: 1= Pupils >than Normal Bone or Joint Aches: 2= Severe Diffuse Aches Runny Nose/ Eye Tearin= Runny Nose/Eyes GI Upset > 30mins: 2= Nausea/Diarrhea Tremor Observation: 2= Slight Tremor Visible Yawning Observation: 1= 1-2x During Session Anxiety or Irritability: 2=Irritable/Anxious Goose Flesh Skin: 0=Smooth Skin COWS Score: 14 CIWA Score Nausea/Vomitin Muscle Tremors: 2 Anxiety: 2 Agitation: 2 Paroxysmal Sweats: 1-Minimal Palms Moist Orientation: 0-Oriented Tacttile Disturbances: 1-Very Mild Itch/Numbness Auditory Disturbances: 1-Very Mild Visual Disturbances: 0-None Headache: 2-Mild CIWA-Ar Total Score: 13 - Admission Criteria OASAS Guidelines: Admission for Medically Managed Detox: Requires at least one of the followin. CIWA greater than 12 2. Seizures within the past 24 hours 3. Delirium tremens within the past 24 hours 4. Hallucinations within the past 24 hours 5. Acute intervention needed for co occurring medical disorder 6. Acute intervention needed for co occurring psychiatric disorder 7. Severe withdrawal that cannot be handled at a lower level of care (continued vomiting, continued diarrhea, abnormal vital signs) requiring intravenous medication and/or fluids 8. Admission ROS [facility] - [facility] Chief Complaint: i need help to stop using heroin,alcohol Allergies/Adverse Reactions: Allergies Allergy/AdvReac Type Severity Reaction Status Date / Time Fish Containing Products Allergy Severe Rash Verified 07/30/18 09:10 No Known Drug Allergies Allergy Verified 07/30/18 09:10 NKDA Allergy Uncoded 07/30/18 09:10 History of Present Illness: this 32 years old male with heroin and alcohol dependence,seeking detox, withdrawal symptom, last detox 12/16/17 to 12/20/17 but keep relapsing anxiety ,depression,insomnia no significant period of sobriety may go to rehab after detox history of asthma Exam Limitations: No Limitations - Ebola screening Have you traveled outside of the country in the last 21 days: No Have you had contact with anyone from an Ebola affected area: No Do you have a fever: No - Review of Systems Constitutional: Chills, Loss of Appetite, Malaise, Night Sweats, Changes in sleep EENT: reports: Tearing, Nose Congestion Respiratory: reports: No Symptoms reported Cardiac: reports: No Symptoms Reported GI: reports: Diarrhea, Nausea, Vomiting : reports: No Symptoms Reported Musculoskeletal: reports: Back Pain, Joint Pain, Muscle Pain Integumentary: reports: Dryness Neuro: reports: Headache, Tremors Endocrine: reports: No Symptoms Reported Hematology: reports: No Symptoms Reported Psychiatric: reports: No Sypmtoms Reported, Judgement Intact, Mood/Affect Appropiate, Orientated x3, Anxious, Depressed (insomnia) Other Systems: Reviewed and Negative Patient History - Patient Medical History Hx Anemia: No Hx Asthma: Yes (MDI) Hx Chronic Obstructive Pulmonary Disease (COPD): No Hx Cancer: No Hx Cardiac Disorders: No Hx Congestive Heart Failure: No Hx Hypertension: No Hx Hypercholesterolemia: No Hx Pacemaker: No HX Cerebrovascular Accident: No Hx Seizures: No Hx Dementia: No Hx Diabetes: No Hx Gastrointestinal Disorders: No Hx Liver Disease: No Hx Genitourinary Disorders: No Hx Sexually Transmitted Disorders: No (DENIES) Hx Renal Disease (ESRD): No Hx Thyroid Disease: No Hx Human Immunodeficiency Virus (HIV): No (NEGATIVE HX last 2018) Hx Hepatitis C: No (DENIES) Hx Depression: Yes Hx Suicide Attempt: No (DENIES) Hx Bipolar Disorder: No Hx Schizophrenia: No Other Medical History: no suicidal,no homicidal, - Patient Surgical History Past Surgical History: No Hx Neurologic Surgery: No Hx Cataract Extraction: No Hx Cardiac Surgery: No Hx Lung Surgery: No Hx Breast Surgery: No Hx Breast Biopsy: No Hx Abdominal Surgery: No Hx Appendectomy: No Hx Cholecystectomy: No Hx Genitourinary Surgery: No Hx Section: No Hx Orthopedic Surgery: No Anesthesia Reaction: No - PPD History Previous Implant?: Yes Documented Results: Negative w/o proof Implanted On Prior R Admission?: Yes Date: 09/11/16 Results: 0 mm PPD to be Administered?: Yes - Smoking Cessation Smoking history: Never smoked Have you smoked in the past 12 months: No Hx Chewing Tobacco Use: No - Substance & Tx. History Hx Alcohol Use: Yes Hx Substance Use: Yes Substance Use Type: Alcohol, Heroin Hx Substance Use Treatment: Yes ([facility] 12/16/17 to 12/20/17) - Substances abused Alcohol Substance route: Oral Frequency: Daily Amount used: 2 to 3 beers of 25 ozs / sometimes Henessy 1 pint Age of first use: 15 Date of last use: 07/30/18 Heroin Substance route: Inhalation Frequency: Daily Amount used: 1 to 3 bags Age of first use: 30 Date of last use: 07/29/18 Family Disease History - Family Disease History Family Disease History: Diabetes: Father, Mother, Heart Disease: Father, Respiratory: Brother Admission Physical Exam [facility] - Vital Signs Vital Signs: Vital Signs - 24 hr 07/30/18 07/30/18 09:07 10:06 Temperature 96.9 F L 96.9 F L Pulse Rate 70 70 Respiratory 18 18 Rate Blood Pressure 126/80 126/80 - Physical General Appearance: Yes: Moderate Distress, Tremorous, Irritable, Anxious HEENTM: Yes: Normal ENT Inspection, RAJESH, Pharynx Normal Respiratory: Yes: Within Normal Limits, Lungs Clear, Normal Breath Sounds Neck: Yes: Within Normal Limits, Supple, Trachea in good position Breast: Yes: Within Normal Limits Cardiology: Yes: Within Normal Limits, Regular Rhythm, Regular Rate, S1, S2 Abdominal: Yes: Within Normal Limits, Normal Bowel Sounds, Non Tender Genitourinary: Yes: Within Normal Limits Back: Yes: Muscle Spasm Extremities: Yes: Within Normal Limits, Normal Range of Motion, Tremors Neurological: Yes: 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 arc II-XII NML intact, Fully Oriented, Alert, Motor Strength 5/5 Integumentary: Yes: Dry Lymphatic: Yes: Within Normal Limits - Diagnostic (1) Opioid dependence with withdrawal Current Visit: Yes Status: Acute (2) Alcohol dependence with uncomplicated withdrawal Current Visit: Yes Status: Acute (3) Asthma Current Visit: No Status: Chronic Qualifiers: Asthma severity: unspecified severity Asthma persistence: unspecified Asthma complication type: unspecified Qualified Code(s): J45.909 - Unspecified asthma, uncomplicated (4) Eczema Current Visit: Yes Status: Acute (5) Anxiety Current Visit: No Status: Acute (6) Insomnia Current Visit: No Status: Acute Qualifiers: Insomnia type: unspecified Qualified Code(s): G47.00 - Insomnia, unspecified (7) Depression Current Visit: Yes Status: Acute (8) Cannabis dependence Current Visit: Yes Status: Chronic Cleared for Admission [facility] - Detox or Rehab [facility] Level of Care: Medically Managed Detox Regimen/Protocol: Methadone/Librium Breathalyzer - Breathalyzer Breathalyzer: 0.031 Urine Drug Screen - Test Device Lot number: [id number] Expiration date: 03/05/20 - Control Is test valid?: Yes - Results Drug screen NEGATIVE: No Urine drug screen results: THC-Marijuana, FEN-Fentanyl, MOP-Opiates, OXY- Oxycodone Inpatient Rehab Admission - Rehab Decision to Admit Inpatient rehab admission?: No
[2018-07-30] MEDS ORDERED: BISMUTH SUBSALICYLATE 524 MG/30 ML UD PO PRN (10:35)
[2018-07-30] MEDS ORDERED: MAGNESIUM CITRATE 300 ML BOTTLE PO PRN (10:35)
[2018-07-30] MEDS ORDERED: MAGNESIUM HYDROX 2400MG/30ML ORAL SUSPENSION 30 ML CUP PO PRN (10:35)
[2018-07-30] MEDS ORDERED: ACETAMINOPHEN 325 MG TABLET (FP) PO PRN ×2 (10:35)
[2018-07-30] MEDS ORDERED: MENTHOL/PHENOL 1 EACH UD MM PRN (10:35)
[2018-07-30] MEDS ORDERED: cloNIDine HCL 0.1 MG TABLET PO PRN (10:35)
[2018-07-30] MEDS ORDERED: IBUPROFEN 400 MG TABLET (FP) PO PRN (10:35)
[2018-07-30] MEDS ORDERED: MAG HYDROX/AL HYDROX/SIMETH 30 ML UNIT-DOSE CUP PO PRN (10:35)
[2018-07-30] MEDS ORDERED: chlordiazePOXIDE HCL 10 MG CAPSULE PO PRN (10:39)
[2018-07-30] MEDS ORDERED: ALBUTEROL SO4 8 GM HFA INHALER IH PRN (10:47)
[2018-07-30] MEDS: chlordiazePOXIDE HCL 25 MG CAPSULE PO SCH ×2 (12:48→22:35)
[2018-07-30] MEDS: METHOCARBAMOL 500 MG TABLET PO PRN ×2 (12:53→22:38)
[2018-07-30] MEDS ORDERED: chlordiazePOXIDE HCL 25 MG CAPSULE PO ONE (13:50)
[2018-07-30 14:52] LABS: HEMATOCRIT 41.1 % (35.4-49); HEMOGLOBIN 13.7 GM/dL (11.7-16.9); MCH 31.3 pg (25.7-33.7); MCHC 33.3 g/dl (32.0-35.9); MEAN CELL VOLUME 93.9 fl (80-96); MEAN PLT VOLUME 9.5 fl (7.5-11.1); PLATELET COUNT 260 K/MM3 (134-434); RBC 4.38 M/mm3 (4.00-5.60); RDW 13.4 % (11.9-15.9); WHITE BLOOD COUNT 4.8 K/mm3 (4.0-10.0)
[2018-07-30 15:05] LABS: ALBUMIN 3.8 g/dl (3.4-5.0); ALK PHOS 44 U/L (45-117); ANION GAP 8 MMOL/L (8-16); BILIRUBIN,TOTAL 0.2 mg/dL (0.2-1); BLOOD UREA NITROGEN 10 mg/dL (7-18); CALCIUM 8.6 mg/dL (8.5-10.1); CHLORIDE 101 mmol/L (98-107); CO2 27 mmol/L (21-32); CREATININE 0.9 mg/dL (0.55-1.3); GLUCOSE,RANDOM 81 mg/dL (74-106); POTASSIUM 3.7 mmol/L (3.5-5.1); SGOT/AST 19 U/L (15-37); SGPT/ALT 27 U/L (13-61); SODIUM 137 mmol/L (136-145); TOT PROT 7.6 g/dl (6.4-8.2)
--- NOTE | 2018-07-30 17:42 | CONSULT ---
[facility] Psychiatric Consult - Data Date of interview: 07/30/18 Admission source: [facility] Identifying data: This is one of multiple admissions to [facility] for this 32 y/ o AA male self-referred for detoxification treatment (alcohol, heroin, cannabis) . Admitted to [address] [place] [address]. Patient is without children, domiciled, unemployed and supported on Public Assistance. Substance Abuse History: Confirmed by the patient in this interview. Details in current [facility] report as follows : Smoking history: Never smoked. Have you smoked in the past 12 months: No. Hx Chewing Tobacco Use: No. Substance & Tx. History. Hx Alcohol Use: Yes. Hx Substance Use: Yes. Substance Use Type: Alcohol, Heroin. Hx Substance Use Treatment: Yes ([facility] 12/16/17 to 12/20/17). - Substances abused. Alcohol. Substance route: Oral. Frequency: Daily. Amount used: 2 to 3 beers of 25 ozs / sometimes Henessy 1 pint. Age of first use: 15. Date of last use: 07/30/18. Heroin. Substance route: Inhalation. Frequency: Daily. Amount used: 1 to 3 bags. Age of first use: 30. Date of last use: 07/29/18 Medical History: Bronchial asthma. Psychiatric History: Patient admits to a history of one psychiatric hospitalization at a facility in [facility] ([facility] He believes that his symptoms were substance-induced at the time. Diagnosed with MDD and Anxiety Disorder. Mr Narayanan sees a psychiatrist at the [facility] clinic.Patient is prescribed gabapentin + xanax. Denies history of suicide attempts. Physical/Sexual Abuse/Trauma History: Patient denies. Additional Comment: Urine drug screen results: THC-Marijuana, FEN-Fentanyl, MOP- Opiates, OXY-Oxycodone. Noted. Mental Status Exam - Mental Status Exam Alert and Oriented to: Time, Place, Person Cognitive Function: Good Patient Appearance: Well Groomed Mood: Nervous, Withdrawn Affect: Appropriate, Normal Range Patient Behavior: Fatigued, Appropriate, Cooperative Speech Pattern: Clear Voice Loudness: Normal Thought Process: Goal Oriented Thought Disorder: Not Present Hallucinations: Denies Suicidal Ideation: Denies Homicidal Ideation: Denies Insight/Judgement: Poor Sleep: Well Appetite: Good Muscle strength/Tone: Normal Gait/Station: Normal Psychiatric Findings - Problem List ([place] 1, 2,3) (1) Alcohol dependence with uncomplicated withdrawal Current Visit: Yes Status: Acute (2) Opioid dependence with withdrawal Current Visit: Yes Status: Acute (3) Cannabis dependence Current Visit: Yes Status: Chronic (4) Substance induced mood disorder Current Visit: Yes Status: Chronic - Initial Treatment Plan Initial Treatment Plan: Psychoeducation. Sleep hygiene. Detoxification. AA/NA meetings. Support. Motivational counseling. Patient declines to resume gabapentin. Observation.
[2018-07-30] MEDS: MONTELUKAST NA 10 MG TABLET PO SCH (22:35)
[2018-07-30] MEDS: THIAMINE HCL 100 MG TABLET (FP) PO SCH (22:35)
[2018-07-30] MEDS: hydrOXYzine PAMOATE 25 MG CAPSULE (FP) PO PRN (22:38)
[2018-07-30] MEDS: MELATONIN 5 MG TABLETS PO PRN (22:38)
[2018-07-30] MEDS ORDERED: METHADONE HCL 10 MG TABLET (FOR DETOX USE ONLY) PO ONE (23:00)
[2018-07-31 00:06] LABS: URINE APPEARANCE CLEAR; URINE BILIRUBIN NEGATIVE (NEGATIVE); URINE COLOR YELLOW; URINE GLUCOSE (UA) NEGATIVE (NEGATIVE); URINE KETONE NEGATIVE (NEGATIVE); URINE LEUK ESTERASE NEGATIVE (NEGATIVE); URINE NITRITE NEGATIVE (NEGATIVE); URINE PROTEIN NEGATIVE (NEGATIVE); URINE UROBILINOGEN 0.2 mg/dL (0.2-1.0)
[2018-07-31] MEDS: chlordiazePOXIDE HCL 25 MG CAPSULE PO SCH (05:41)
[2018-07-31] MEDS: METHOCARBAMOL 500 MG TABLET PO PRN ×3 (06:30→18:28)
[2018-07-31] MEDS ORDERED: METHADONE HCL 5 MG TABLET (FOR DETOX USE ONLY) PO ONE (10:00)
[2018-07-31] MEDS: PRENATAL VITAMINS W/ FOLIC ACID TABLET (FP) PO SCH (10:36)
[2018-07-31] MEDS: hydrOXYzine PAMOATE 25 MG CAPSULE (FP) PO PRN ×2 (10:37→18:28)
[2018-07-31] MEDS: chlordiazePOXIDE 5 MG CAPSULE PO SCH ×2 (12:33→22:08)
--- NOTE | 2018-07-31 16:36 | PN ---
S CIWA - CIWA Score Nausea/Vomitin-No Nausea/No Vomiting Muscle Tremors: None Anxiety: 4-Mod. Anxious/Guarded Agitation: 2 Paroxysmal Sweats: No Perspiration Orientation: 0-Oriented Tacttile Disturbances: 0-None Auditory Disturbances: 3-Moderate Harsh/Frighten Visual Disturbances: 2-Mild Sensitivity Headache: 0-None Present CIWA-Ar Total Score: 11 S COWS - Scale Resting Pulse: 0= [place] 80 or Below Sweatin= No chills or Flushing Restless Observation: 0= Sits Still Pupil Size: 0= Normal to Room Light Bone or Joint Aches: 0= None Runny Nose/ Eye Tearin= None GI Upset > 30mins: 2= Nausea/Diarrhea Tremor Observation of Outstretched Hands: 0= None Yawning Observation: 1= 1-2x During Session Anxiety or Irritability: 2=Irritable/Anxious Goose Flesh Skin: 3=Piloerection COWS Score: 8 S Progress Note (SOAP) Subjective: Stomach Cramping, Diarrhea, Anxious. Objective: PATIENT A & O X 3, OBSERVED AMBULATING ON UNIT UNASSISTED. IN NO ACUTE DISTRESS. 07/31/18 16:35 Vital Signs Temperature 98.6 F 07/31/18 14:06 Pulse Rate 70 07/31/18 14:06 Respiratory Rate 18 07/31/18 14:06 Blood Pressure 118/77 07/31/18 14:06 O2 Sat by Pulse Oximetry (%) Laboratory Tests 07/30/18 07/30/18 07/30/18 10:45 10:45 10:45 WBC 4.8 RBC 4.38 Hgb 13.7 Hct 41.1 MCV 93.9 MCH 31.3 MCHC 33.3 RDW 13.4 Plt Count 260 D MPV 9.5 Sodium 137 Potassium 3.7 Chloride 101 Carbon Dioxide 27 Anion Gap 8 BUN 10 Creatinine 0.9 Creat Clearance w eGFR 96.60 Random Glucose 81 Calcium 8.6 Total Bilirubin 0.2 AST 19 ALT 27 Alkaline Phosphatase 44 L Total Protein 7.6 Albumin 3.8 Urine Color Urine Appearance Urine pH Ur Specific [place] Urine Protein Urine Glucose (UA) Urine Ketones Urine Blood Urine Nitrite Urine Bilirubin Urine Urobilinogen Ur Leukocyte Esterase RPR Titer Nonreactive 07/30/18 18:32 WBC RBC Hgb Hct MCV MCH MCHC RDW Plt Count MPV Sodium Potassium Chloride Carbon Dioxide Anion Gap BUN Creatinine Creat Clearance w eGFR Random Glucose Calcium Total Bilirubin AST ALT Alkaline Phosphatase Total Protein Albumin Urine Color Yellow Urine Appearance Clear Urine pH 6.0 Ur Specific [place] 1.006 L Urine Protein Negative Urine Glucose (UA) Negative Urine Ketones Negative Urine Blood Negative Urine Nitrite Negative Urine Bilirubin Negative Urine Urobilinogen 0.2 Ur Leukocyte Esterase Negative RPR Titer LABS NOTED. Assessment: 07/31/18 16:36 WITHDRAWAL SYMPTOMS. Plan: CONTINUE DETOX.
--- NOTE | 2018-07-31 18:57 | PN ---
MY[facility] Progress Note Note: Psychiatry Attending's note (follow-up) : Approached by patient. Complaint : insomnia. Mr Narayanan is requesting seroquel. Endorses history of good response. Seroquel 100 mg po hs. Ordered. Side effect/benefits discussed with patient. Consent (verbal) given to
[2018-07-31] MEDS: THIAMINE HCL 100 MG TABLET (FP) PO SCH (22:08)
[2018-07-31] MEDS: QUEtiapine FUMARATE 100 MG TABLET (FP) PO SCH (22:08)
[2018-07-31] MEDS: MONTELUKAST NA 10 MG TABLET PO SCH (22:08)
[2018-08-01] MEDS: chlordiazePOXIDE 5 MG CAPSULE PO SCH (05:57)
[2018-08-01] MEDS ORDERED: METHADONE HCL 10 MG TABLET (FOR DETOX USE ONLY) PO ONE (10:00)
[2018-08-01] MEDS: PRENATAL VITAMINS W/ FOLIC ACID TABLET (FP) PO SCH (10:43)
[2018-08-01] MEDS: hydrOXYzine PAMOATE 25 MG CAPSULE (FP) PO PRN ×2 (10:58→18:49)
[2018-08-01] MEDS ORDERED: chlordiazePOXIDE HCL 10 MG CAPSULE PO PRN (13:00)
--- NOTE | 2018-08-01 14:21 | PN ---
S CIWA - CIWA Score Nausea/Vomitin-Mild Nausea/No Vomiting Muscle Tremors: 2 Anxiety: 2 Agitation: 2 Paroxysmal Sweats: 1-Minimal Palms Moist Orientation: 0-Oriented Tacttile Disturbances: 0-None Auditory Disturbances: 0-None Visual Disturbances: 0-None Headache: 1-Very Mild CIWA-Ar Total Score: 9 BHS COWS - Scale Resting Pulse: 0= [place] 80 or Below Sweatin= Chills/Flushing Restless Observation: 0= Sits Still Pupil Size: 0= Normal to Room Light Bone or Joint Aches: 1= Mild Discomfort Runny Nose/ Eye Tearin= Nasal Congestion GI Upset > 30mins: 1= Stomach Cramp Tremor Observation of Outstretched Hands: 1= Tremor [place], Not Seen Yawning Observation: 0= None Anxiety or Irritability: 1=Feels Anxious/Irritable Goose Flesh Skin: 0=Smooth Skin COWS Score: 6 BHS Progress Note (SOAP) Subjective: feeling better today social with peers in day room Objective: 08/01/18 14:20 Vital Signs Temperature 96.7 F L 08/01/18 09:26 Pulse Rate 64 08/01/18 09:26 Respiratory Rate 18 08/01/18 09:26 Blood Pressure 114/68 08/01/18 09:26 O2 Sat by Pulse Oximetry (%) Laboratory Last Values WBC 4.8 K/mm3 (4.0-10.0) 07/30/18 10:45 RBC 4.38 M/mm3 (4.00-5.60) 07/30/18 10:45 Hgb 13.7 GM/dL (11.7-16.9) 07/30/18 10:45 Hct 41.1 % (35.4-49) 07/30/18 10:45 MCV 93.9 fl (80-96) 07/30/18 10:45 MCH 31.3 pg (25.7-33.7) 07/30/18 10:45 MCHC 33.3 g/dl (32.0-35.9) 07/30/18 10:45 RDW 13.4 % (11.9-15.9) 07/30/18 10:45 Plt Count 260 K/MM3 (134-434) D 07/30/18 10:45 MPV 9.5 fl (7.5-11.1) 07/30/18 10:45 Sodium 137 mmol/L (136-145) 07/30/18 10:45 Potassium 3.7 mmol/L (3.5-5.1) 07/30/18 10:45 Chloride 101 mmol/L (98-107) 07/30/18 10:45 Carbon Dioxide 27 mmol/L (21-32) 07/30/18 10:45 Anion Gap 8 MMOL/L (8-16) 07/30/18 10:45 BUN 10 mg/dL (7-18) 07/30/18 10:45 Creatinine 0.9 mg/dL (0.55-1.3) 07/30/18 10:45 Creat Clearance w eGFR 96.60 (>60) 07/30/18 10:45 Random Glucose 81 mg/dL (74-106) 07/30/18 10:45 Calcium 8.6 mg/dL (8.5-10.1) 07/30/18 10:45 Total Bilirubin 0.2 mg/dL (0.2-1) 07/30/18 10:45 AST 19 U/L (15-37) 07/30/18 10:45 ALT 27 U/L (13-61) 07/30/18 10:45 Alkaline Phosphatase 44 U/L (45-117) L 07/30/18 10:45 Total Protein 7.6 g/dl (6.4-8.2) 07/30/18 10:45 Albumin 3.8 g/dl (3.4-5.0) 07/30/18 10:45 Urine Color Yellow 07/30/18 18:32 Urine Appearance Clear 07/30/18 18:32 Urine pH 6.0 (5.0-8.0) 07/30/18 18:32 Ur Specific [place] 1.006 (1.010-1.035) L 07/30/18 18:32 Urine Protein Negative (NEGATIVE) 07/30/18 18:32 Urine Glucose (UA) Negative (NEGATIVE) 07/30/18 18:32 Urine Ketones Negative (NEGATIVE) 07/30/18 18:32 Urine Blood Negative (NEGATIVE) 07/30/18 18:32 Urine Nitrite Negative (NEGATIVE) 07/30/18 18:32 Urine Bilirubin Negative (NEGATIVE) 07/30/18 18:32 Urine Urobilinogen 0.2 mg/dL (0.2-1.0) 07/30/18 18:32 Ur Leukocyte Esterase Negative (NEGATIVE) 07/30/18 18:32 RPR Titer Nonreactive (NONREACTIVE) 07/30/18 10:45 labn oted Assessment: 08/01/18 14:20 alcohol and opiate withdrawal sx Plan: continue detox
[2018-08-01] MEDS: chlordiazePOXIDE HCL 10 MG CAPSULE PO SCH ×2 (14:41→22:27)
[2018-08-01] MEDS: METHOCARBAMOL 500 MG TABLET PO PRN ×2 (14:42→22:28)
[2018-08-01] MEDS: THIAMINE HCL 100 MG TABLET (FP) PO SCH (22:27)
[2018-08-01] MEDS: QUEtiapine FUMARATE 100 MG TABLET (FP) PO SCH (22:27)
[2018-08-01] MEDS: MONTELUKAST NA 10 MG TABLET PO SCH (22:27)
[2018-08-01] MEDS: MELATONIN 5 MG TABLETS PO PRN (22:32)
[2018-08-02] MEDS ORDERED: METHADONE HCL 5 MG TABLET (FOR DETOX USE ONLY) PO ONE ×2 (06:00→10:15)
[2018-08-02] MEDS: chlordiazePOXIDE HCL 10 MG CAPSULE PO SCH ×2 (07:34→13:07)
[2018-08-02 09:20] VITALS: BP 125/84; PULSE 85; TEMP 97.1
[2018-08-02] MEDS: PRENATAL VITAMINS W/ FOLIC ACID TABLET (FP) PO SCH (09:44)
[2018-08-02] MEDS: METHOCARBAMOL 500 MG TABLET PO PRN (09:44)
--- NOTE | 2018-08-02 13:51 | DS ---
[facility] Detox Discharge Summary Admission Date: 07/30/18 Discharge Date: 08/02/18 - History Present History: Alcohol Dependence, Cannabis Dependence, Opioid Dependence Additional Comments: PATIENT GOING TO [facility] ([place], [place]) FOR AFTERCARE. PATIENT WAS DISCHARGED FROM DETOX UNIT IN STABLE MEDICAL CONDITION. Pertinent Past History: Anxiety, Depression, Insomnia, Asthma, Eczema. - Physical Exam Results Vital Signs: Vital Signs Temperature 97.1 F L 08/02/18 09:20 Pulse Rate 85 08/02/18 09:20 Respiratory Rate 18 08/02/18 09:20 Blood Pressure 125/84 08/02/18 09:20 O2 Sat by Pulse Oximetry (%) Pertinent Admission Physical Exam Findings: WITHDRAWAL SYMPTOMS. Laboratory Tests 07/30/18 07/30/18 07/30/18 10:45 10:45 10:45 WBC 4.8 RBC 4.38 Hgb 13.7 Hct 41.1 MCV 93.9 MCH 31.3 MCHC 33.3 RDW 13.4 Plt Count 260 D MPV 9.5 Sodium 137 Potassium 3.7 Chloride 101 Carbon Dioxide 27 Anion Gap 8 BUN 10 Creatinine 0.9 Creat Clearance w eGFR 96.60 Random Glucose 81 Calcium 8.6 Total Bilirubin 0.2 AST 19 ALT 27 Alkaline Phosphatase 44 L Total Protein 7.6 Albumin 3.8 Urine Color Urine Appearance Urine pH Ur Specific [place] Urine Protein Urine Glucose (UA) Urine Ketones Urine Blood Urine Nitrite Urine Bilirubin Urine Urobilinogen Ur Leukocyte Esterase RPR Titer Nonreactive 07/30/18 18:32 WBC RBC Hgb Hct MCV MCH MCHC RDW Plt Count MPV Sodium Potassium Chloride Carbon Dioxide Anion Gap BUN Creatinine Creat Clearance w eGFR Random Glucose Calcium Total Bilirubin AST ALT Alkaline Phosphatase Total Protein Albumin Urine Color Yellow Urine Appearance Clear Urine pH 6.0 Ur Specific [place] 1.006 L Urine Protein Negative Urine Glucose (UA) Negative Urine Ketones Negative Urine Blood Negative Urine Nitrite Negative Urine Bilirubin Negative Urine Urobilinogen 0.2 Ur Leukocyte Esterase Negative RPR Titer LABS NOTED. - Treatment Hospital Course: Detox Protocol Followed, Detoxed Safely, Responded well, Discharged Condition Good, Rehab Referral Accepted Patient has Accepted a Rehab Referral to: [facility] ([place], [place]). - Medication Discharge Medications: Ambulatory Orders Albuterol Sulfate Inhaler - [Ventolin HFA Inhaler -] 2 puff IH Q4H PRN 09/09/16 Montelukast Na [Singulair -] 10 mg PO HS 09/09/16 Alprazolam [Xanax] 0.25 mg PO TID 07/30/18 Azelastine HCl 0.05 drop OU PRN 07/30/18 Cetirizine HCl [Zyrtec -] 10 mg PO DAILY 07/30/18 Gabapentin 100 mg PO TID 07/30/18 Quetiapine Fumarate [Seroquel] 200 mg PO HS 07/30/18 hydrOXYzine PAMOATE [Vistaril -] 50 mg PO TID PRN 07/30/18 - Diagnosis (1) Alcohol dependence with uncomplicated withdrawal Current Visit: Yes Status: Acute (2) Depression Current Visit: Yes Status: Acute Qualifiers: Depression Type: unspecified Qualified Code(s): F32.9 - Major depressive disorder, single episode, unspecified (3) Eczema Current Visit: Yes Status: Acute Qualifiers: Eczema type: unspecified Qualified Code(s): L30.9 - Dermatitis, unspecified (4) Opioid dependence with withdrawal Current Visit: Yes Status: Acute (5) Cannabis dependence Current Visit: Yes Status: Chronic (6) Anxiety Current Visit: Yes Status: Acute (7) Insomnia Current Visit: Yes Status: Acute Qualifiers: Insomnia type: unspecified Qualified Code(s): G47.00 - Insomnia, unspecified (8) Asthma Current Visit: Yes Status: Chronic Qualifiers: Asthma severity: unspecified severity Asthma persistence: unspecified Asthma complication type: unspecified Qualified Code(s): J45.909 - Unspecified asthma, uncomplicated (9) Substance induced mood disorder Current Visit: Yes Status: Chronic - AMA Did Patient Leave Against Medical Advice: No
== END 2018-08-02 14:15 | disposition other institution (70) | DRG 773 ==
LOC: YASAS 08:58 → Y3N 10:40
PROVIDERS: ADMIT Surgery; ATTEND Surgery
PROC: HZ2ZZZZ Detoxification Services for Substance Abuse Treatment (ICD-10-PCS; principal; 2018-07-30)
DX: F10.230 Alcohol dependence with withdrawal, uncomplicated (principal); F11.23 Opioid dependence with withdrawal; F12.20 Cannabis dependence, uncomplicated; F19.24 Other psychoactive substance dependence with psychoactive substance-induced mood disorder; F41.8 Other specified anxiety disorders; F32.9 Major depressive disorder, single episode, unspecified; G47.00 Insomnia, unspecified; L30.9 Dermatitis, unspecified; J45.909 Unspecified asthma, uncomplicated; Z91.013 Allergy to seafood
CPT/HCPCS: 36415; 80053; 81003; 85027; 86593; J0735

== ENCOUNTER 2019-02-23 15:51 | Inpatient (IN) | payer OTHER ==
[2019-02-23 20:44] VITALS: BMI 29.8
--- NOTE | 2019-02-23 21:54 | HP ---
COWS - Scale Resting Pulse: 1= [place] 81-100 Sweatin= Chills/Flushing Restless Observation: 3= Extraneous Movement Pupil Size: 1= Pupils >than Normal Bone or Joint Aches: 1= Mild Discomfort Runny Nose/ Eye Tearin= Nasal Congestion GI Upset > 30mins: 1= Stomach Cramp Tremor Observation: 1= Tremor [place], Not Seen Yawning Observation: 1= 1-2x During Session Anxiety or Irritability: 2=Irritable/Anxious Goose Flesh Skin: 3=Piloerection COWS Score: 16 CIWA Score - Admission Criteria OASAS Guidelines: Admission for Medically Managed Detox: Requires at least one of the followin. CIWA greater than 12 2. Seizures within the past 24 hours 3. Delirium tremens within the past 24 hours 4. Hallucinations within the past 24 hours 5. Acute intervention needed for co occurring medical disorder 6. Acute intervention needed for co occurring psychiatric disorder 7. Severe withdrawal that cannot be handled at a lower level of care (continued vomiting, continued diarrhea, abnormal vital signs) requiring intravenous medication and/or fluids 8. Admitting History and Physical - Smoking History Smoking history: Never smoked Have you smoked in the past 12 months: No - Alcohol/Substance Use Hx Alcohol Use: Yes Admission ROS [facility] Chief Complaint: heroin detox Allergies/Adverse Reactions: Allergies Allergy/AdvReac Type Severity Reaction Status Date / Time Fish Containing Products Allergy Severe Rash Verified 02/23/19 20:26 No Known Drug Allergies Allergy Verified 02/23/19 20:26 NKDA Allergy Uncoded 02/23/19 20:26 History of Present Illness: 33 yo with asthma, here for heroin detox. Was last here a few months ago- but relapsed soon after. Pt also cocaine- occ, metamphetmines occ, THC- smokes daily , and has prescription benzo- got #60 of Xanax 1mg on 02/04/19. Pt states he feels loss of motivation, chills and abd pain. Pt wants to quit opiates. Wants to try suboxone detox- Utox neg for opioids Heroin- uses 1-2 bags/day,IH, last use 2 days ago, last OD last week ago, has narcan kit Utox- pos for BZO, Met, jaimie, THC - Ebola screening Have you traveled outside of the country in the last 21 days: No Have you had contact with anyone from an Ebola affected area: No - Review of Systems Constitutional: No Symptoms Reported EENT: reports: No Symptoms Reported Respiratory: reports: No Symptoms reported Cardiac: reports: No Symptoms Reported GI: reports: No Symptoms Reported : reports: No Symptoms Reported Musculoskeletal: reports: No Symptoms Reported Integumentary: reports: No Symptoms Reported Neuro: reports: No Symptoms reported Endocrine: reports: No Symptoms Reported Hematology: reports: No Symptoms Reported Psychiatric: reports: No Sypmtoms Reported Other Systems: Reviewed and Negative Patient History - Patient Medical History Hx Anemia: No Hx Asthma: Yes (MDI) Hx Chronic Obstructive Pulmonary Disease (COPD): No Hx Cancer: No Hx Cardiac Disorders: No Hx Congestive Heart Failure: No Hx Hypertension: No Hx Hypercholesterolemia: No Hx Pacemaker: No HX Cerebrovascular Accident: No Hx Seizures: No Hx Dementia: No Hx Diabetes: No Hx Gastrointestinal Disorders: No Hx Liver Disease: No Hx Genitourinary Disorders: No Hx Sexually Transmitted Disorders: No (DENIES) Hx Renal Disease (ESRD): No Hx Thyroid Disease: No Hx Human Immunodeficiency Virus (HIV): No (NEGATIVE HX last 2017) Hx Hepatitis C: No (DENIES) Hx Depression: Yes Hx Suicide Attempt: No (DENIES) Hx Bipolar Disorder: No Hx Schizophrenia: No - Patient Surgical History Past Surgical History: No Hx Neurologic Surgery: No Hx Cataract Extraction: No Hx Cardiac Surgery: No Hx Lung Surgery: No Hx Breast Surgery: No Hx Breast Biopsy: No Hx Abdominal Surgery: No Hx Appendectomy: No Hx Cholecystectomy: No Hx Genitourinary Surgery: No Hx Section: No Hx Orthopedic Surgery: No Anesthesia Reaction: No - PPD History Date: 09/11/16 Results: 0 mm - Smoking Cessation Smoking history: Never smoked Have you smoked in the past 12 months: No Hx Chewing Tobacco Use: No Initiated information on smoking cessation: No - Substance & Tx. History Substance Use Type: Cocaine, Heroin - Substances abused Alcohol Substance route: Oral Frequency: Daily Amount used: 2 to 3 beers of 25 ozs / sometimes [place] 1 pint Age of first use: 15 Date of last use: 02/23/19 Heroin Substance route: Inhalation Frequency: Daily Amount used: 1 to 3 bags Age of first use: 30 Date of last use: 02/21/19 Cocaine Substance route: Inhalation Frequency: 1-2 times per week Amount used: 1 bag Age of first use: 30 Date of last use: 02/21/19 Marijuana/Hashish Substance route: Smoking Frequency: Daily Amount used: 4 to 5 blunts Age of first use: 14 Date of last use: 02/23/19 Admission Physical Exam BHS - Vital Signs Vital Signs: Vital Signs - 24 hr 02/23/19 20:25 Temperature 98.7 F Pulse Rate 92 H Respiratory 16 Rate Blood Pressure 113/66 Breathalyzer - Breathalyzer Breathalyzer: 0 Urine Drug Screen - Test Device Lot number: [id number] Expiration date: 03/05/20 - Control Is test valid?: Yes - Results Drug screen NEGATIVE: No Urine drug screen results: THC-Marijuana, FEN-Fentanyl, MOP-Opiates, OXY- Oxycodone Inpatient Rehab Admission - Rehab Decision to Admit Inpatient rehab admission?: No
[2019-02-23] MEDS ORDERED: METHOCARBAMOL 500 MG TABLET PO PRN (21:58)
[2019-02-23] MEDS ORDERED: MAGNESIUM CITRATE 300 ML BOTTLE PO PRN (21:58)
[2019-02-23] MEDS ORDERED: hydrOXYzine PAMOATE 25 MG CAPSULE (FP) PO PRN (21:58)
[2019-02-23] MEDS ORDERED: MAGNESIUM HYDROX 2400MG/30ML ORAL SUSPENSION 30 ML CUP PO PRN (21:58)
[2019-02-23] MEDS ORDERED: BISMUTH SUBSALICYLATE 524 MG/30 ML UD PO PRN (21:58)
[2019-02-23] MEDS ORDERED: MAG HYDROX/AL HYDROX/SIMETH 30 ML UNIT-DOSE CUP PO PRN (21:58)
[2019-02-23] MEDS ORDERED: MELATONIN 5 MG TABLETS PO PRN (21:58)
[2019-02-23] MEDS ORDERED: MENTHOL/PHENOL 1 EACH UD MM PRN (21:58)
[2019-02-23] MEDS ORDERED: ACETAMINOPHEN 325 MG TABLET (FP) PO PRN ×2 (21:58)
[2019-02-23] MEDS ORDERED: BUPRENORPHINE/NALOXONE 8 MG/2 MG FILM PACKET SL ONE (21:59)
[2019-02-23] MEDS ORDERED: ALBUTEROL SO4 8 GM HFA INHALER IH PRN (22:03)
[2019-02-24] MEDS ORDERED: QUEtiapine FUMARATE 100 MG TABLET (FP) PO SCH ×2 (00:43→22:00)
[2019-02-24] MEDS: THIAMINE HCL 100 MG TABLET (FP) PO SCH ×2 (01:13→22:32)
[2019-02-24] MEDS: QUEtiapine FUMARATE 100 MG TABLET (FP) PO SCH ×2 (01:31→22:32)
[2019-02-24] MEDS: BUPRENORPHINE/NALOXONE 4 MG/1 MG FILM PACKET SL SCH ×2 (07:07→22:32)
[2019-02-24 09:31] LABS: HEMATOCRIT 38.8 % (35.4-49); MCH 31.2 pg (25.7-33.7); MCHC 33.5 g/dl (32.0-35.9); MEAN CELL VOLUME 93.2 fl (80-96); MEAN PLT VOLUME 9.7 fl (7.5-11.1); PLATELET COUNT 282 K/MM3 (134-434); RBC 4.16 M/mm3 (4.00-5.60); RDW 13.2 % (11.9-15.9); WHITE BLOOD COUNT 7.5 K/mm3 (4.0-10.0)
[2019-02-24 10:01] LABS: ALBUMIN 3.5 g/dl (3.4-5.0); BILIRUBIN,TOTAL 0.3 mg/dL (0.2-1); BLOOD UREA NITROGEN 13.4 mg/dL (7-18); CALCIUM 9.1 mg/dL (8.5-10.1); CREATININE 1.2 mg/dL (0.55-1.3); POTASSIUM 3.8 mmol/L (3.5-5.1); TOT PROT 6.9 g/dl (6.4-8.2)
[2019-02-24] MEDS: PRENATAL VITAMINS W/ FOLIC ACID TABLET (FP) PO SCH (10:10)
[2019-02-24] MEDS: IBUPROFEN 400 MG TABLET (FP) PO PRN ×2 (10:11→22:34)
--- NOTE | 2019-02-24 12:34 | PN ---
BHS COWS - Scale Resting Pulse: 1= [place] 81-100 Sweatin=Flushed/Facial Moisture Restless Observation: 1= Difficult to Sit Still Pupil Size: 0= Normal to Room Light Bone or Joint Aches: 2= Severe Diffuse Aches Runny Nose/ Eye Tearin= Nasal Congestion GI Upset > 30mins: 0= None Tremor Observation of Outstretched Hands: 1= Tremor [place], Not Seen Yawning Observation: 1= 1-2x During Session Anxiety or Irritability: 2=Irritable/Anxious Goose Flesh Skin: 0=Smooth Skin COWS Score: 11 BHS Progress Note (SOAP) Subjective: sweats body aches chills irritable agitation Objective: 02/24/19 12:33 Vital Signs Temperature 97.2 F L 02/24/19 11:27 Pulse Rate 89 02/24/19 11:27 Respiratory Rate 18 02/24/19 11:27 Blood Pressure 113/69 02/24/19 11:27 O2 Sat by Pulse Oximetry (%) Laboratory Tests 02/24/19 02/24/19 08:00 08:00 WBC 7.5 RBC 4.16 Hgb 13.0 Hct 38.8 MCV 93.2 MCH 31.2 MCHC 33.5 RDW 13.2 Plt Count 282 MPV 9.7 Sodium 138 Potassium 3.8 Chloride 104 Carbon Dioxide 29 Anion Gap 5 L BUN 13.4 Creatinine 1.2 Est GFR (CKD-EPI)AfAm 90.26 Est GFR (CKD-EPI)NonAf 77.87 Random Glucose 102 Calcium 9.1 Total Bilirubin 0.3 AST 10 L ALT 19 Alkaline Phosphatase 50 Total Protein 6.9 Albumin 3.5 labs noted aaox3 lying in bed no acute distress Assessment: 02/24/19 12:33 withdrawal sx Plan: continue detox increase fluids
[2019-02-25] MEDS: BUPRENORPHINE/NALOXONE 4 MG/1 MG FILM PACKET SL SCH (07:10)
--- NOTE | 2019-02-25 10:27 | PN ---
BHS COWS - Scale Resting Pulse: 0= [place] 80 or Below Sweatin= Chills/Flushing Restless Observation: 1= Difficult to Sit Still Pupil Size: 0= Normal to Room Light Bone or Joint Aches: 1= Mild Discomfort Runny Nose/ Eye Tearin= Nasal Congestion GI Upset > 30mins: 2= Nausea/Diarrhea Tremor Observation of Outstretched Hands: 1= Tremor [place], Not Seen Yawning Observation: 0= None Anxiety or Irritability: 1=Feels Anxious/Irritable Goose Flesh Skin: 0=Smooth Skin COWS Score: 8 BHS Progress Note (SOAP) Subjective: Patient seen in bed with only minor complaints of withdrawals. Objective: Vitals: BP: 101/65 P;69/min R: 20/min T:95.7F Alert and oriented x 3, in mild distress Cor: S1, S2 Lungs: Clear to A/P Abd: Benign, hyperactive bowel sounds Ext: Normal pulses, normal color 02/25/19 10:23 Assessment: 1. Opioid Dependence with withdrawals 2. Minor abnormalities in labs 02/25/19 10:24 Plan: 1. Continue Detox and encourage more po fluids. Patient wants to be referred out to MAT upon completion of detox. Encouraged patient to communicate his wishes to his counselor and to make arrangements for him to go to either methadone or suboxone treatment. 2. Will continue to monitor and manage withdrawal symptoms. Dr. [place]
[2019-02-25] MEDS: PRENATAL VITAMINS W/ FOLIC ACID TABLET (FP) PO SCH (10:33)
[2019-02-25] MEDS: IBUPROFEN 400 MG TABLET (FP) PO PRN ×2 (10:34→22:20)
[2019-02-25] MEDS: THIAMINE HCL 100 MG TABLET (FP) PO SCH (22:18)
[2019-02-25] MEDS: QUEtiapine FUMARATE 100 MG TABLET (FP) PO SCH (22:18)
[2019-02-25] MEDS: BUPRENORPHINE/NALOXONE 2 MG/0.5 MG FILM PACKET SL SCH (22:18)
[2019-02-26] MEDS: BUPRENORPHINE/NALOXONE 2 MG/0.5 MG FILM PACKET SL SCH (08:25)
[2019-02-26 09:08] VITALS: TEMP 97.7
[2019-02-26] MEDS: PRENATAL VITAMINS W/ FOLIC ACID TABLET (FP) PO SCH (10:55)
[2019-02-26 14:16] VITALS: BP 119/79; PULSE 68
--- NOTE | 2019-02-26 15:34 | PN ---
BHS COWS - Scale Resting Pulse: 0= [place] 80 or Below Sweatin= No chills or Flushing Restless Observation: 1= Difficult to Sit Still Pupil Size: 0= Normal to Room Light Bone or Joint Aches: 2= Severe Diffuse Aches Runny Nose/ Eye Tearin= Nasal Congestion GI Upset > 30mins: 1= Stomach Cramp Tremor Observation of Outstretched Hands: 0= None Yawning Observation: 0= None Anxiety or Irritability: 2=Irritable/Anxious Goose Flesh Skin: 0=Smooth Skin COWS Score: 7 BHS Progress Note (SOAP) Subjective: Anxious, Body Aches, Restless,, Nausea. Objective: PATIENT A & O X 3, OBSERVED AMBULATING ON DETOX UNIT UNASSISTED. IN NO ACUTE DISTRESS. 02/26/19 15:36 Vital Signs Temperature 97.7 F 02/26/19 14:16 Pulse Rate 68 02/26/19 14:16 Respiratory Rate 18 02/26/19 14:16 Blood Pressure 119/79 02/26/19 14:16 O2 Sat by Pulse Oximetry (%) Laboratory Tests 02/24/19 02/24/19 02/24/19 08:00 08:00 08:00 WBC 7.5 RBC 4.16 Hgb 13.0 Hct 38.8 MCV 93.2 MCH 31.2 MCHC 33.5 RDW 13.2 Plt Count 282 MPV 9.7 Sodium 138 Potassium 3.8 Chloride 104 Carbon Dioxide 29 Anion Gap 5 L BUN 13.4 Creatinine 1.2 Est GFR (CKD-EPI)AfAm 90.26 Est GFR (CKD-EPI)NonAf 77.87 Random Glucose 102 Calcium 9.1 Total Bilirubin 0.3 AST 10 L ALT 19 Alkaline Phosphatase 50 Total Protein 6.9 Albumin 3.5 RPR Titer Nonreactive LABS NOTED. Assessment: 02/26/19 15:38 WITHDRAWAL SYMPTOMS. Plan: CONTINUE DETOX. DUE TO DEGREE OF CURRENT WITHDRAWAL SYMPTOMS, PATIENT PERMITTED TO REMAIN ON DETOX UNIT UNTIL TOMORROW AM, AT WHICH TIME HE WILL BE DISCHARGED. HOWEVER, PATIENT MADE AWARE THAT DETOX REGIMEN THAT WAS INITIATED FOR HIM WHEN HE WAS ADMITTED IS NOW COMPLETE AND THAT HE WILL NOT RECEIVE ANY FURTHER DETOX MEDICATION FOR REMAINDER OF HIS ADMISSION. PATIENT VERBALIZED UNDERSTANDING.
--- NOTE | 2019-02-26 17:51 | PN ---
S Progress Note Note: called by nurse patient would like to leave,feel better,no withdrawal symptom Vital Signs Temperature 97.7 F 02/26/19 14:16 Pulse Rate 68 02/26/19 14:16 Respiratory Rate 18 02/26/19 14:16 Blood Pressure 119/79 02/26/19 14:16 O2 Sat by Pulse Oximetry (%) stable for discharge
--- NOTE | 2019-02-26 17:52 | DS ---
[facility] Detox Discharge Summary Admission Date: 02/23/19 Discharge Date: 02/26/19 - History Present History: Alcohol Dependence, Cannabis Dependence, Cocaine Dependence, Opioid Dependence Additional Comments: stable for discharge ,follow up with after care program as arrangement Pertinent Past History: asthma nicotine dependence - Physical Exam Results Vital Signs: Vital Signs Temperature 97.7 F 02/26/19 14:16 Pulse Rate 68 02/26/19 14:16 Respiratory Rate 18 02/26/19 14:16 Blood Pressure 119/79 02/26/19 14:16 O2 Sat by Pulse Oximetry (%) Pertinent Admission Physical Exam Findings: withdrawal signs and symptom Vital Signs Temperature 97.7 F 02/26/19 14:16 Pulse Rate 68 02/26/19 14:16 Respiratory Rate 18 02/26/19 14:16 Blood Pressure 119/79 02/26/19 14:16 O2 Sat by Pulse Oximetry (%) Laboratory Last Values WBC 7.5 K/mm3 (4.0-10.0) 02/24/19 08:00 RBC 4.16 M/mm3 (4.00-5.60) 02/24/19 08:00 Hgb 13.0 GM/dL (11.7-16.9) 02/24/19 08:00 Hct 38.8 % (35.4-49) 02/24/19 08:00 MCV 93.2 fl (80-96) 02/24/19 08:00 MCH 31.2 pg (25.7-33.7) 02/24/19 08:00 MCHC 33.5 g/dl (32.0-35.9) 02/24/19 08:00 RDW 13.2 % (11.9-15.9) 02/24/19 08:00 Plt Count 282 K/MM3 (134-434) 02/24/19 08:00 MPV 9.7 fl (7.5-11.1) 02/24/19 08:00 Sodium 138 mmol/L (136-145) 02/24/19 08:00 Potassium 3.8 mmol/L (3.5-5.1) 02/24/19 08:00 Chloride 104 mmol/L (98-107) 02/24/19 08:00 Carbon Dioxide 29 mmol/L (21-32) 02/24/19 08:00 Anion Gap 5 MMOL/L (8-16) L 02/24/19 08:00 BUN 13.4 mg/dL (7-18) 02/24/19 08:00 Creatinine 1.2 mg/dL (0.55-1.3) 02/24/19 08:00 Est GFR (CKD-EPI)AfAm 90.26 02/24/19 08:00 Est GFR (CKD-EPI)NonAf 77.87 02/24/19 08:00 Random Glucose 102 mg/dL (74-106) 02/24/19 08:00 Calcium 9.1 mg/dL (8.5-10.1) 02/24/19 08:00 Total Bilirubin 0.3 mg/dL (0.2-1) 02/24/19 08:00 AST 10 U/L (15-37) L 02/24/19 08:00 ALT 19 U/L (13-61) 02/24/19 08:00 Alkaline Phosphatase 50 U/L (45-117) 02/24/19 08:00 Total Protein 6.9 g/dl (6.4-8.2) 02/24/19 08:00 Albumin 3.5 g/dl (3.4-5.0) 02/24/19 08:00 RPR Titer Nonreactive (NONREACTIVE) 02/24/19 08:00 - Treatment Hospital Course: Detox Protocol Followed, Detoxed Safely, Responded well, Discharged Condition Good Patient has Accepted a Rehab Referral to: declined - Medication Discharge Medications: Ambulatory Orders Albuterol Sulfate Inhaler - [Ventolin HFA Inhaler -] 2 puff IH Q4H PRN 09/09/16 Montelukast Na [Singulair -] 10 mg PO HS 09/09/16 Alprazolam [Xanax] 1 mg PO TID 07/30/18 Azelastine HCl 0.05 drop OU PRN 07/30/18 Cetirizine HCl [Zyrtec -] 10 mg PO DAILY 07/30/18 Gabapentin 100 mg PO TID 07/30/18 Quetiapine Fumarate [Seroquel -] 200 mg PO HS 07/30/18 hydrOXYzine PAMOATE [Vistaril -] 50 mg PO TID PRN 07/30/18 - Diagnosis (1) Alcohol dependence with uncomplicated withdrawal Current Visit: No Status: Acute (2) Opioid dependence with withdrawal Current Visit: No Status: Acute (3) Sedative, hypnotic or anxiolytic dependence with withdrawal, uncomplicated Current Visit: No Status: Acute (4) Asthma Current Visit: No Status: Chronic Qualifiers: Asthma severity: unspecified severity Asthma persistence: unspecified Asthma complication type: unspecified Qualified Code(s): J45.909 - Unspecified asthma, uncomplicated (5) Cannabis abuse Current Visit: No Status: Chronic (6) Cocaine dependence, uncomplicated Current Visit: No Status: Chronic - AMA Did Patient Leave Against Medical Advice: No
== END 2019-02-26 17:59 | disposition home or self-care (01) | DRG 773 ==
LOC: YASAS 15:51 → Y6N 23:43
PROVIDERS: ADMIT Allergy & Immunology; ATTEND Allergy & Immunology
PROC: HZ2ZZZZ Detoxification Services for Substance Abuse Treatment (ICD-10-PCS; principal; 2019-02-23)
DX: F10.230 Alcohol dependence with withdrawal, uncomplicated (principal); F11.23 Opioid dependence with withdrawal; F13.230 Sedative, hypnotic or anxiolytic dependence with withdrawal, uncomplicated; F14.20 Cocaine dependence, uncomplicated; F12.20 Cannabis dependence, uncomplicated; F17.210 Nicotine dependence, cigarettes, uncomplicated; F32.9 Major depressive disorder, single episode, unspecified; J45.909 Unspecified asthma, uncomplicated; Z91.013 Allergy to seafood
CPT/HCPCS: 36415; 80053; 85027; 86593

== ENCOUNTER 2021-08-14 08:15 | Inpatient (IN) | payer OTHER ==
[2021-08-14] MEDS ORDERED: MAGNESIUM HYDROX 2400MG/30ML ORAL SUSPENSION 30 ML CUP PO PRN (09:23)
[2021-08-14] MEDS ORDERED: LOPERAMIDE HCL 2 MG CAPSULE PO PRN (09:23)
[2021-08-14] MEDS ORDERED: IBUPROFEN 400 MG TABLET (FP) PO PRN (09:23)
[2021-08-14] MEDS ORDERED: DICYCLOMINE HCL 10 MG CAPSULE PO PRN (09:23)
[2021-08-14] MEDS ORDERED: NICOTINE 10 MG CARTRIDGE (INHALER) IH PRN (09:23)
[2021-08-14] MEDS ORDERED: BISMUTH SUBSALICYLATE 524 MG/30 ML PO PRN (09:23)
[2021-08-14] MEDS ORDERED: MAGNESIUM CITRATE 300 ML BOTTLE PO PRN (09:23)
[2021-08-14] MEDS ORDERED: ONDANSETRON *ODT* 4 MG TABLET SL PRN (09:23)
[2021-08-14] MEDS ORDERED: ACETAMINOPHEN 325 MG TABLET (FP) PO PRN ×2 (09:23)
[2021-08-14] MEDS ORDERED: MAG HYDROX/AL HYDROX/SIMETH 30 ML UNIT-DOSE CUP PO PRN (09:23)
[2021-08-14] MEDS ORDERED: BENZOCAINE/MENTHOL (CHLORASEPTIC ) LOZENGE MM PRN (09:23)
[2021-08-14 09:46] VITALS: BMI 33.9
[2021-08-14] MEDS ORDERED: methaDONE HCL 10 MG TABLET (FOR DETOX USE ONLY) PO ONE (10:00)
[2021-08-14] MEDS: PRENATAL VITAMINS W/ FOLIC ACID TABLET (FP) PO SCH (10:18)
[2021-08-14] MEDS: NICOTINE 14 MG/24 HOURS TOPICAL PATCH TD SCH (10:18)
[2021-08-14] MEDS: hydrOXYzine PAMOATE 25 MG CAPSULE (FP) PO SCH ×4 (10:19→22:48)
[2021-08-14] MEDS ORDERED: ALBUTEROL SO4 0.083% IH SOL 2.5 MG/3 ML VIAL.NEB. NEB PRN (11:04)
[2021-08-14] MEDS: ALBUTEROL SO4 HFA INHALER IH PRN ×2 (12:34→17:24)
[2021-08-14] MEDS: MELATONIN 5 MG TABLETS PO SCH (22:48)
[2021-08-14] MEDS: THIAMINE HCL 100 MG TABLET (FP) PO SCH (22:49)
[2021-08-15] MEDS: ALBUTEROL SO4 HFA INHALER IH PRN ×3 (00:06→22:44)
[2021-08-15] MEDS: hydrOXYzine PAMOATE 25 MG CAPSULE (FP) PO SCH ×6 (00:15→22:25)
[2021-08-15] MEDS: MELATONIN 5 MG TABLETS PO SCH ×2 (00:15→22:25)
[2021-08-15] MEDS ORDERED: methaDONE HCL 10 MG TABLET (FOR DETOX USE ONLY) ONE (09:09)
[2021-08-15] MEDS: PRENATAL VITAMINS W/ FOLIC ACID TABLET (FP) PO SCH (10:56)
[2021-08-15] MEDS: NICOTINE 14 MG/24 HOURS TOPICAL PATCH TD SCH (10:56)
[2021-08-15] MEDS ORDERED: ONDANSETRON *ODT* 4 MG TABLET SL ONE (11:15)
[2021-08-15 13:56] LABS: HEMATOCRIT 39.7 % (35.4-49); HEMOGLOBIN 12.8 GM/dL (11.7-16.9); MCH 29.8 pg (25.7-33.7); MCHC 32.4 g/dl (32.0-35.9); MEAN CELL VOLUME 92.1 fl (80-96); MEAN PLT VOLUME 10.6 fl (7.5-11.1); PLATELET COUNT 278 10^3/uL (134-434); RBC 4.31 M/mm3 (4.00-5.60); RDW 13.8 % (11.9-15.9); WHITE BLOOD COUNT 6.2 K/mm3 (4.0-10.0)
[2021-08-15 14:10] LABS: CALCIUM 8.7 mg/dL (8.5-10.1)
[2021-08-15 14:14] LABS: CREATININE 0.9 mg/dL (0.55-1.3)
[2021-08-15 14:15] LABS: BILIRUBIN,TOTAL 0.2 mg/dL (0.2-1); TOT PROT 5.8 g/dl (6.4-8.2)
[2021-08-15] MEDS: cloNIDine HCL 0.1 MG TABLET PO PRN (22:25)
[2021-08-15] MEDS: QUEtiapine FUMARATE 100 MG TABLET (FP) PO SCH (22:25)
[2021-08-15] MEDS: THIAMINE HCL 100 MG TABLET (FP) PO SCH (22:25)
[2021-08-16] MEDS: hydrOXYzine PAMOATE 25 MG CAPSULE (FP) PO SCH ×5 (06:21→22:29)
[2021-08-16] MEDS ORDERED: methaDONE HCL 10 MG TABLET (FOR DETOX USE ONLY) PO ONE (10:00)
[2021-08-16] MEDS: PRENATAL VITAMINS W/ FOLIC ACID TABLET (FP) PO SCH (11:00)
[2021-08-16] MEDS: METHOCARBAMOL 500 MG TABLET PO PRN ×2 (11:01→22:29)
[2021-08-16] MEDS: NICOTINE 14 MG/24 HOURS TOPICAL PATCH TD SCH (11:01)
[2021-08-16] MEDS: cloNIDine HCL 0.1 MG TABLET PO PRN ×2 (13:27→18:06)
[2021-08-16] MEDS: MELATONIN 5 MG TABLETS PO SCH (22:29)
[2021-08-16] MEDS: QUEtiapine FUMARATE 100 MG TABLET (FP) PO SCH (22:29)
[2021-08-16] MEDS: THIAMINE HCL 100 MG TABLET (FP) PO SCH (22:29)
[2021-08-17 00:11] LABS: SARS-CoV-2 NAA Not Detected (Not Detected)
[2021-08-17] MEDS: hydrOXYzine PAMOATE 25 MG CAPSULE (FP) PO SCH ×5 (06:46→21:48)
[2021-08-17] MEDS ORDERED: methaDONE HCL 10 MG TABLET (FOR DETOX USE ONLY) ONE (09:40)
[2021-08-17] MEDS: NICOTINE 14 MG/24 HOURS TOPICAL PATCH TD SCH (10:08)
[2021-08-17] MEDS: PRENATAL VITAMINS W/ FOLIC ACID TABLET (FP) PO SCH (10:08)
[2021-08-17] MEDS: METHOCARBAMOL 500 MG TABLET PO PRN (21:48)
[2021-08-17] MEDS: QUEtiapine FUMARATE 100 MG TABLET (FP) PO SCH (21:48)
[2021-08-17] MEDS: MELATONIN 5 MG TABLETS PO SCH (21:48)
[2021-08-17] MEDS: THIAMINE HCL 100 MG TABLET (FP) PO SCH (21:48)
[2021-08-18] MEDS: hydrOXYzine PAMOATE 25 MG CAPSULE (FP) PO SCH ×5 (06:17→21:32)
[2021-08-18] MEDS ORDERED: methaDONE HCL 10 MG TABLET (FOR DETOX USE ONLY) PO ONE (10:00)
[2021-08-18] MEDS: PRENATAL VITAMINS W/ FOLIC ACID TABLET (FP) PO SCH (10:13)
[2021-08-18] MEDS: NICOTINE 14 MG/24 HOURS TOPICAL PATCH TD SCH (10:13)
[2021-08-18] MEDS: METHOCARBAMOL 500 MG TABLET PO PRN (17:25)
[2021-08-18] MEDS: QUEtiapine FUMARATE 100 MG TABLET (FP) PO SCH (21:32)
[2021-08-18] MEDS: MELATONIN 5 MG TABLETS PO SCH (21:32)
[2021-08-18] MEDS: THIAMINE HCL 100 MG TABLET (FP) PO SCH (21:32)
[2021-08-19] MEDS: hydrOXYzine PAMOATE 25 MG CAPSULE (FP) PO SCH ×3 (05:39→15:15)
[2021-08-19] MEDS: ALBUTEROL SO4 HFA INHALER IH PRN (05:40)
[2021-08-19] MEDS: METHOCARBAMOL 500 MG TABLET PO PRN (10:05)
[2021-08-19] MEDS: NICOTINE 14 MG/24 HOURS TOPICAL PATCH TD SCH (10:05)
[2021-08-19] MEDS: PRENATAL VITAMINS W/ FOLIC ACID TABLET (FP) PO SCH (10:05)
[2021-08-19 13:12] VITALS: BP 153/88; PULSE 94; TEMP 97.1
[2021-08-19] MEDS ORDERED: cloNIDine HCL 0.1 MG TABLET PO ONE (14:00)
== END 2021-08-19 15:20 | disposition other institution (70) | DRG 773 ==
LOC: YASAS 08:15 → Y6N 09:34
PROVIDERS: ADMIT Allergy & Immunology; ATTEND Surgery
PROC: HZ2ZZZZ Detoxification Services for Substance Abuse Treatment (ICD-10-PCS; principal; 2021-08-14)
DX: F11.23 Opioid dependence with withdrawal (principal); F14.20 Cocaine dependence, uncomplicated; F13.20 Sedative, hypnotic or anxiolytic dependence, uncomplicated; F12.20 Cannabis dependence, uncomplicated; F17.210 Nicotine dependence, cigarettes, uncomplicated; F19.280 Other psychoactive substance dependence with psychoactive substance-induced anxiety disorder; F19.282 Other psychoactive substance dependence with psychoactive substance-induced sleep disorder; F34.1 Dysthymic disorder; F32.9 Major depressive disorder, single episode, unspecified; F41.9 Anxiety disorder, unspecified; J45.909 Unspecified asthma, uncomplicated; L30.9 Dermatitis, unspecified; Z56.0 Unemployment, unspecified; Z59.00 Homelessness unspecified
CPT/HCPCS: 36415; 80053; 85027; 86780; 87811; C9803-CS; J0735; U0003; U0005

== ENCOUNTER 2021-08-19 16:34 | Inpatient (IN) | payer OTHER ==
[2021-08-19] MEDS ORDERED: MAGNESIUM HYDROX 2400MG/30ML ORAL SUSPENSION 30 ML CUP PO PRN (18:32)
[2021-08-19] MEDS ORDERED: LOPERAMIDE HCL 2 MG CAPSULE PO PRN (18:32)
[2021-08-19] MEDS ORDERED: MAG HYDROX/AL HYDROX/SIMETH 30 ML UNIT-DOSE CUP PO PRN (18:32)
[2021-08-19] MEDS ORDERED: P-EPHED 60MG/TRIPROLIDI 2.5MG TABLET PO PRN (18:32)
[2021-08-19] MEDS ORDERED: ACETAMINOPHEN 325 MG TABLET (FP) PO PRN (18:32)
[2021-08-19] MEDS ORDERED: guaiFENesin 200 MG/10 ML 10 ML UNIT-DOSE CUPS PO PRN (18:32)
[2021-08-19] MEDS ORDERED: IBUPROFEN 400 MG TABLET (FP) PO PRN (18:32)
[2021-08-19] MEDS ORDERED: NICOTINE 10 MG CARTRIDGE (INHALER) IH PRN (18:32)
[2021-08-19] MEDS ORDERED: hydrOXYzine PAMOATE 25 MG CAPSULE (FP) PO PRN (18:32)
[2021-08-19] MEDS ORDERED: MAGNESIUM CITRATE 300 ML BOTTLE PO PRN (18:32)
[2021-08-19] MEDS ORDERED: BENZOCAINE/MENTHOL (CHLORASEPTIC ) LOZENGE MM PRN (18:32)
[2021-08-19] MEDS ORDERED: ALBUTEROL SO4 HFA INHALER IH PRN (18:34)
[2021-08-19] MEDS: THIAMINE HCL 100 MG TABLET (FP) PO SCH (21:36)
[2021-08-19] MEDS ORDERED: QUEtiapine FUMARATE 100 MG TABLET (FP) PO ONE (22:08)
[2021-08-19] MEDS: MELATONIN 5 MG TABLETS PO PRN (22:13)
[2021-08-20] MEDS: PRENATAL VITAMINS W/ FOLIC ACID TABLET (FP) PO SCH (09:59)
[2021-08-20] MEDS: cloNIDine HCL 0.1 MG TABLET PO PRN (18:14)
[2021-08-20] MEDS: METHOCARBAMOL 500 MG TABLET PO PRN (18:14)
[2021-08-20] MEDS: THIAMINE HCL 100 MG TABLET (FP) PO SCH (21:01)
[2021-08-20] MEDS: MELATONIN 5 MG TABLETS PO PRN (21:01)
[2021-08-20] MEDS ORDERED: QUEtiapine FUMARATE 100 MG TABLET (FP) PO SCH (22:00)
[2021-08-21] MEDS: METHOCARBAMOL 500 MG TABLET PO PRN (10:24)
[2021-08-21] MEDS: PRENATAL VITAMINS W/ FOLIC ACID TABLET (FP) PO SCH (10:24)
[2021-08-21] MEDS: cloNIDine HCL 0.1 MG TABLET PO PRN (10:24)
[2021-08-21 19:18] VITALS: BP 132/92; PULSE 79; TEMP 98
== END 2021-08-21 19:57 | disposition left against medical advice (07) | DRG 770 ==
LOC: YASAS 16:34 → Y3W 16:36
PROVIDERS: ADMIT Allergy & Immunology; ATTEND Psychiatry & Neurology Pain Medicine
PROC: HZ42ZZZ Group Counseling for Substance Abuse Treatment, Cognitive-Behavioral (ICD-10-PCS; principal; 2021-08-19)
DX: F11.20 Opioid dependence, uncomplicated (principal); F13.20 Sedative, hypnotic or anxiolytic dependence, uncomplicated; F14.20 Cocaine dependence, uncomplicated; F12.20 Cannabis dependence, uncomplicated; F39 Unspecified mood [affective] disorder; G47.00 Insomnia, unspecified; J45.20 Mild intermittent asthma, uncomplicated
CPT/HCPCS: J0735